=== PATIENT | male | born 1990 | race African-American/Black ===

== ENCOUNTER 2016-06-25 12:29 | Emergency (ER) | payer OTHER ==
[2016-06-25] MEDS ORDERED: Lidocaine 4% Cream 5 GM TUBE w/ Tegaderm ONE (12:42)
== END 2016-06-25 13:14 | disposition home or self-care (01) ==
LOC: BURERS 12:29
DX: L72.3 Sebaceous cyst (principal); F32.9 Major depressive disorder, single episode, unspecified; F17.210 Nicotine dependence, cigarettes, uncomplicated
CPT/HCPCS: 10060

== ENCOUNTER 2016-07-06 14:27 | Emergency (ER) | payer OTHER | END 2016-07-06 14:46 | disposition home or self-care (01) | LOC: BURERS 14:27 | DX: M25.561 Pain in right knee (principal); M25.562 Pain in left knee; F31.9 Bipolar disorder, unspecified; F17.210 Nicotine dependence, cigarettes, uncomplicated; Z79.899 Other long term (current) drug therapy | CPT/HCPCS: 99283 ==

== ENCOUNTER 2016-08-05 18:32 | Emergency (ER) | payer OTHER ==
[2016-08-05] MEDS ORDERED: HYDROcodone/Acetaminophen 10/325 mg Tablet ONE (18:52)
== END 2016-08-05 18:59 | disposition home or self-care (01) ==
LOC: BURERS 18:32
DX: L73.2 Hidradenitis suppurativa (principal); F31.9 Bipolar disorder, unspecified; F17.210 Nicotine dependence, cigarettes, uncomplicated
CPT/HCPCS: 99282

== ENCOUNTER 2016-08-12 14:11 | Emergency (ER) | payer OTHER ==
[2016-08-12] MEDS ORDERED: HYDROcodone/Acetaminophen 10/325 mg Tablet ONE (14:31)
[2016-08-12] MEDS ORDERED: Ibuprofen 800 MG TAB ONE (14:32)
[2016-08-12] MEDS ORDERED: Lidocaine 1% w/Epinephrine 1:100K 30 ML VIAL ONE (14:41)
== END 2016-08-12 15:45 | disposition home or self-care (01) ==
LOC: BURERS 14:11
DX: L02.212 Cutaneous abscess of back [any part, except buttock and flank] (principal); L73.2 Hidradenitis suppurativa; F17.210 Nicotine dependence, cigarettes, uncomplicated
CPT/HCPCS: 10060; J2001

== ENCOUNTER 2016-10-22 14:05 | Emergency (ER) | payer OTHER ==
[2016-10-22] MEDS ORDERED: HYDROcodone/Acetaminophen 10/325 mg Tablet ONE (14:17)
== END 2016-10-22 15:15 | disposition home or self-care (01) ==
LOC: BURERS 14:05
DX: L02.11 Cutaneous abscess of neck (principal); F17.210 Nicotine dependence, cigarettes, uncomplicated; F31.9 Bipolar disorder, unspecified
CPT/HCPCS: 10060

== ENCOUNTER 2017-01-10 14:34 | Emergency (ER) | payer OTHER ==
[2017-01-10] MEDS ORDERED: Sulfameth/Trimethoprim DS 800-160mg TAB ONE (16:37)
[2017-01-10] MEDS ORDERED: HYDROcodone/Acetaminophen 5/325 mg Tablet ONE (16:41)
== END 2017-01-10 16:43 | disposition home or self-care (01) ==
LOC: BURERS 14:34
DX: L02.11 Cutaneous abscess of neck (principal); F17.210 Nicotine dependence, cigarettes, uncomplicated
CPT/HCPCS: 10060; 87070; 87205

== ENCOUNTER 2017-02-07 11:54 | Emergency (ER) | payer OTHER ==
[2017-02-07] MEDS ORDERED: Lidocaine 1% w/Epinephrine 1:100K 30 ML VIAL ONE (12:03)
[2017-02-07] MEDS ORDERED: HYDROcodone/Acetaminophen 5/325 mg Tablet ONE (12:28)
== END 2017-02-07 12:32 | disposition home or self-care (01) ==
LOC: BURERS 11:54
DX: L02.11 Cutaneous abscess of neck (principal); L73.2 Hidradenitis suppurativa; F31.9 Bipolar disorder, unspecified; F41.9 Anxiety disorder, unspecified; F17.210 Nicotine dependence, cigarettes, uncomplicated; F17.290 Nicotine dependence, other tobacco product, uncomplicated
CPT/HCPCS: 10060; 87070; 87205; J2001

== ENCOUNTER 2017-03-17 15:56 | Emergency (ER) | payer OTHER ==
[2017-03-17] MEDS ORDERED: HYDROcodone/Acetaminophen 10/325 mg Tablet ONE (16:09)
[2017-03-17] MEDS ORDERED: Clindamycin 150 MG CAP ONE (16:09)
== END 2017-03-17 16:38 | disposition home or self-care (01) ==
LOC: BURERS 15:56
DX: L02.211 Cutaneous abscess of abdominal wall (principal); L02.416 Cutaneous abscess of left lower limb; L73.2 Hidradenitis suppurativa; F31.9 Bipolar disorder, unspecified; F41.9 Anxiety disorder, unspecified; F17.210 Nicotine dependence, cigarettes, uncomplicated
CPT/HCPCS: 10061

== ENCOUNTER 2017-03-26 11:13 | Emergency (ER) | payer OTHER ==
[2017-03-26] MEDS ORDERED: Ibuprofen 200 MG TAB ONE (11:38)
[2017-03-26] MEDS ORDERED: HYDROcodone/Acetaminophen 10/325 mg Tablet ONE (11:38)
== END 2017-03-26 12:05 | disposition home or self-care (01) ==
LOC: BURERS 11:13
DX: L73.2 Hidradenitis suppurativa (principal); L02.211 Cutaneous abscess of abdominal wall; F31.9 Bipolar disorder, unspecified; F41.9 Anxiety disorder, unspecified; F17.210 Nicotine dependence, cigarettes, uncomplicated
CPT/HCPCS: 10060

== ENCOUNTER 2017-04-16 12:13 | Emergency (ER) | payer OTHER ==
[2017-04-16] MEDS ORDERED: Ketorolac Tromethamine 60 MG/2 ML VIAL ONE (12:55)
[2017-04-16] MEDS ORDERED: Dexamethasone 4 mg/ml Vial ONE (12:57)
--- NOTE | 2017-04-16 17:51 | RAD ---
CHEST TWO VIEWS 04/16/17 Comparison is made with a 07/29/15 study. The heat is normal in size and the lungs are clear. No infiltrate or effusion was seen. The trachea i s midline. The bony structures appear normal. The mediastinum appears normal. IMPRESSION: No acute thoracic findings. POS: HOME
== END 2017-04-16 13:20 | disposition home or self-care (01) ==
LOC: BURERS 12:13
DX: J11.1 Influenza due to unidentified influenza virus with other respiratory manifestations (principal); F41.9 Anxiety disorder, unspecified; F31.9 Bipolar disorder, unspecified; F17.210 Nicotine dependence, cigarettes, uncomplicated
CPT/HCPCS: 71046; 96372; J1100; J1885

== ENCOUNTER 2017-08-08 09:04 | Emergency (ER) | payer OTHER ==
[2017-08-08] MEDS ORDERED: Morphine 10 MG/ML VIAL ONE (09:44)
== END 2017-08-08 10:15 | disposition home or self-care (01) ==
LOC: BURERS 09:04
DX: L02.11 Cutaneous abscess of neck (principal); F31.9 Bipolar disorder, unspecified; F41.9 Anxiety disorder, unspecified; F17.210 Nicotine dependence, cigarettes, uncomplicated
CPT/HCPCS: 10061; 96372; J2270

== ENCOUNTER 2017-08-27 20:37 | Emergency (ER) | payer OTHER ==
[2017-08-27] MEDS ORDERED: Ondansetron HCl/PF 4 MG/2 ML Vial ONE (21:17)
[2017-08-27] MEDS ORDERED: Ketorolac Tromethamine 30 MG/ML VIAL ONE (21:17)
[2017-08-27] MEDS ORDERED: Piperacillin/Tazobactam 3.375 GM VIAL ONE (21:17)
[2017-08-27 21:50] LABS: ALT (SGPT) 21 U/L (8-55); AST (SGOT) 21 U/L (5-34); Alkaline Phosphatase 188 U/L (40-150); Anion Gap 15 mmol/L (10-20); BUN (Urea Nitrogen) 6 mg/dL (8.9-20.6); Bilirubin, Total 0.3 mg/dL (0.2-1.2); Calc. Creatinine Clearance 0 mL/min (70-130); Calcium 9.2 mg/dL (7.8-10.44); Carbon Dioxide 24 mmol/L (22-29); Chloride 102 mmol/L (98-107); Estimated GFR-MDRD Greater than 90; Globulin 7.4 g/dL (2.4-3.5); Glucose 106 mg/dL (70-105); Potassium 3.3 mmol/L (3.5-5.1); Protein, Total 10.4 g/dL (6.0-8.3); Sodium 138 mmol/L (136-145)
[2017-08-27 21:57] LABS: Anisocytosis SLIGHT = 6-15 cells (100X) (0-5/hpf); Band 8 % (5-11); Hemoglobin 12.5 g/dL (14.0-18.0); Lymphocytes 10 % (21-51); MDiff Complete? YES; Mean Corpuscular HGB CONC 34.4 g/dL (32.0-36.0); Mean Corpuscular Hemoglobin 25.2 pg (27.0-31.0); Mean Corpuscular Volume 73.3 fL (78.0-98.0); Mean Platelet Volume 4.9 fL (7.4-10.4); Microcytosis SLIGHT = 6-15 cells (100X) (0-5/hpf); Monocytes 4 % (0-10); Neutrophil 78 % (42-75); PLT Morphology Comment Appears Increased; Platelet Count 402 thou/uL (130-400); RBC Distribution Width 14.9 % (11.5-14.5); Red Blood Cell (RBC) Count 4.95 mill/uL (4.70-6.10); Small Platelets SLIGHT; Toxic Granulation SLIGHT; White Blood Cell (WBC) Count 26.3 thou/uL (4.8-10.8)
[2017-08-27 23:08] LABS: Bilirubin Negative (Negative); Blood, Urine Negative (Negative); Clarity Clear (Clear); Glucose, Urine (Dipstick) Negative (Negative); Leukocyte Negative (Negative); Nitrite Negative (Negative); Protein, Urine (Dipstick) Negative (Neg-Trace); Specific Gravity, Urine 1.007 (1.002-1.036); Urobilinogen 0.2 mg/dL (0.2-1.0); pH, Urine 6.5 (5.0-9.0)
== END 2017-08-27 23:55 | disposition short-term general hospital (02) ==
LOC: BURERS 20:37
DX: A41.9 Sepsis, unspecified organism (principal); L73.2 Hidradenitis suppurativa; L02.215 Cutaneous abscess of perineum; L02.416 Cutaneous abscess of left lower limb; L02.415 Cutaneous abscess of right lower limb; L02.414 Cutaneous abscess of left upper limb; L02.413 Cutaneous abscess of right upper limb; L02.412 Cutaneous abscess of left axilla; L02.411 Cutaneous abscess of right axilla; L02.211 Cutaneous abscess of abdominal wall; L02.31 Cutaneous abscess of buttock; L02.212 Cutaneous abscess of back [any part, except buttock and flank]; L02.213 Cutaneous abscess of chest wall; F31.9 Bipolar disorder, unspecified; F41.9 Anxiety disorder, unspecified; F17.210 Nicotine dependence, cigarettes, uncomplicated; Z79.899 Other long term (current) drug therapy
CPT/HCPCS: 80053; 81003; 83605; 85025; 87040; 87070; 87086; 87205; 96365; 96366; 96375; 96376; J1885; J2270; J2405; J2543; J3370

== ENCOUNTER 2017-11-09 12:05 | Emergency (ER) | payer OTHER ==
--- NOTE | 2017-11-09 21:40 | RAD ---
CHEST TWO VIEWS: 11/09/17 Comparison is made with a 04/16/17 study. There has been no adverse interval change. The heart is normal in size and the lungs are clear. No ef fusions are seen. IMPRESSION: No acute thoracic finding. POS: HOME
== END 2017-11-09 12:38 | disposition home or self-care (01) ==
LOC: BURERS 12:05
DX: J06.9 Acute upper respiratory infection, unspecified (principal); F31.9 Bipolar disorder, unspecified; F41.9 Anxiety disorder, unspecified; Z87.891 Personal history of nicotine dependence
CPT/HCPCS: 71046

== ENCOUNTER 2017-11-26 11:18 | Emergency (ER) | payer OTHER ==
[2017-11-26] MEDS ORDERED: HYDROcodone/Acetaminophen 10/325 mg Tablet ONE (12:07)
[2017-11-26] MEDS ORDERED: Sulfameth/Trimethoprim DS 800-160mg TAB ONE (12:08)
== END 2017-11-26 12:13 | disposition home or self-care (01) ==
LOC: BURERS 11:18
DX: L02.212 Cutaneous abscess of back [any part, except buttock and flank] (principal); L02.213 Cutaneous abscess of chest wall; F41.9 Anxiety disorder, unspecified; F31.9 Bipolar disorder, unspecified; Z87.891 Personal history of nicotine dependence; Z79.899 Other long term (current) drug therapy
CPT/HCPCS: 10061; 87070; 87077; 87186; 87205

== ENCOUNTER 2018-01-19 08:33 | Observation (INO) | payer OTHER ==
[2018-01-19] MEDS ORDERED: Iopamidol 370 76% 125 ML VIAL FS ONE (09:00)
[2018-01-19] MEDS ORDERED: Fentanyl 100 MCG/2 ML VIAL ONE (09:22)
[2018-01-19] MEDS ORDERED: Ondansetron PF 4 MG/2 ML Vial ONE (09:23)
[2018-01-19 09:27] LABS: Hemoglobin 15.2 g/dL (14.0-18.0); Mean Corpuscular HGB CONC 32.4 g/dL (32.0-36.0); Mean Corpuscular Hemoglobin 23.9 pg (27.0-31.0); Mean Corpuscular Volume 73.6 fL (78.0-98.0); Mean Platelet Volume 5.5 fL (7.4-10.4); Platelet Count 438 thou/uL (130-400); RBC Distribution Width 16.4 % (11.5-14.5); Red Blood Cell (RBC) Count 6.36 mill/uL (4.70-6.10); White Blood Cell (WBC) Count 20.4 thou/uL (4.8-10.8)
[2018-01-19 09:42] LABS: ALT (SGPT) 17 U/L (8-55); AST (SGOT) 17 U/L (5-34); Albumin 3.6 g/dL (3.5-5.0); Alkaline Phosphatase 130 U/L (40-150); Anion Gap 17 mmol/L (10-20); BUN (Urea Nitrogen) 11 mg/dL (8.9-20.6); Bilirubin, Total 0.4 mg/dL (0.2-1.2); Calc. Creatinine Clearance 0 mL/min (70-130); Calcium 9.7 mg/dL (7.8-10.44); Carbon Dioxide 22 mmol/L (22-29); Chloride 105 mmol/L (98-107); Estimated GFR-MDRD Greater than 90; Globulin 5.3 g/dL (2.4-3.5); Glucose 127 mg/dL (70-105); Lipase 26 U/L (8-78); Potassium 3.5 mmol/L (3.5-5.1); Protein, Total 8.9 g/dL (6.0-8.3); Sodium 140 mmol/L (136-145)
[2018-01-19 09:46] LABS: Anisocytosis SLIGHT = 6-15 cells (100X) (0-5/hpf); Band 2 % (5-11); Lymphocytes 7 % (21-51); MDiff Complete? YES; Microcytosis SLIGHT = 6-15 cells (100X) (0-5/hpf); Monocytes 3 % (0-10); Neutrophil 88 % (42-75); PLT Morphology Comment Appears Increased
--- NOTE | 2018-01-19 10:41 | RAD ---
PORTABLE CHEST: Date: 01-19-18 An AP portable film at 0939 is compared with a 11-09-17 study. FINDINGS: The heart is normal in size and the lungs are clear. No infiltrate, effusion, or congestion was seen. The trachea is midline. IMPRESSION: No acute thoracic finding. POS: HOME
--- NOTE | 2018-01-19 10:52 | CT ---
CT ABDOMEN AND PELVIS WITH CONTRAST: Date: 01-19-[address] of the abdomen and pelvis was done for evaluation of epigastric pain and decreased bowel so unds. Axial slices were acquired then coronal and sagittal reconstructions were done. FINDINGS: The lung bases are clear. The liver, spleen, pancreas, gallbladder, adrenal glands, kidneys, and abdo niki aorta appear normal. The main finding on this study is multiple fluid filled loops of small and large bowel. Loops are sarahi led with an abundance of fluid from the gastric region down through the sigmoid. No loops are signifi cantly dilated. There is not significant amounts of wall thickening. No free fluid or free air is see n. The appendix is identified and appears normal. CT of the pelvis was remarkable only for the fluid filled loops of bowel. No free fluid or inflammato ry changes were seen here. No bony abnormalities were appreciated in the lumbar spine or pelvis. IMPRESSION: Multiple fluid filled loops of large and small bowel. Enteritis should be considered. Findings discussed with Dr. Marie at 1025 on 01-19-18. POS: HOME
[2018-01-19] MEDS ORDERED: Sodium Chloride 0.9% 10 ML ONE (12:18)
[2018-01-19] MEDS: Sodium Chloride 0.9% 1,000 ML IV SCH (12:30)
[2018-01-19] MEDS ORDERED: Ondansetron PF 4 MG/2 ML Vial IVP PRN (14:56)
[2018-01-19] MEDS ORDERED: Ondansetron ODT 4 MG TAB SL PRN (14:56)
[2018-01-19] MEDS ORDERED: Acetaminophen 325 MG TAB PO PRN (14:56)
[2018-01-19 15:15] LABS: Clarity Clear (Clear); Specific Gravity, Urine 1.006 (1.005-1.030); pH, Urine 5.5 (5.0-9.0)
[2018-01-19 15:16] LABS: Bilirubin Negative (Negative); Blood, Urine Negative (Negative); Glucose, Urine (Dipstick) Negative (Negative); Leukocyte Negative (Negative); Nitrite Negative (Negative); Protein, Urine (Dipstick) Negative (Neg-Trace); Urobilinogen 0.2 mg/dL (0.2-1.0)
[2018-01-19 15:21] LABS: Amphetamine Not Detected (NotDetected); Barbiturates Screen Not Detected (NotDetected); Benzodiazepine Screen Not Detected (NotDetected); Cocaine Metabolite Screen Not Detected (NotDetected); Medtox Control Line Valid? VALID (VALID); Methadone Not Detected (NotDetected); Methamphetamine Not Detected (NotDetected); Opiate Screen Not Detected (NotDetected); Oxycodone Screen Not Detected (NotDetected); Phencyclidine (PCP) Not Detected (NotDetected); THC/Cannabinoid Screen Detected (NotDetected); Tricyclic Screen Not Detected (NotDetected)
[2018-01-19 16:49] VITALS: BMI 21.7
[2018-01-19] MEDS: Dicyclomine 20 MG TAB PO SCH (22:07)
[2018-01-19] MEDS: Famotidine 20 MG TAB PO SCH (22:07)
[2018-01-20] MEDS: Sodium Chloride 0.9% 1,000 ML IV SCH (00:40)
--- NOTE | 2018-01-20 01:47 | HP ---
OBS ADMISSION AND DISCHARGE CHIEF COMPLAINT: Nausea, vomiting, diarrhea, abdominal pain. HISTORY OF PRESENT ILLNESS: 27-year-old male presented to [facility] Emergency Department earlier today with complaints of intractable nausea, vomiting, diarrhea, and abdominal pain that began abruptly earlier this morning around 2:30. He reports having accompanied subjective warmth. The patient states that he had chicken for dinner the night prior; however, no other individuals have similar symptoms as himself. He has been unable to hold down any food or liquids since his symptoms began. He denies having had any melena or hematochezia. He had not taken any medications for these symptoms prior to his arrival at the emergency department. In the ER, labs were obtained revealing leukocytosis with a left shift; however, it is noted that this patient has underlying hidradenitis with chronic draining skin ulcers and in looking back at prior CBCs, the patient has chronic leukocytosis dating back to 2011. His lactic acid was elevated at 3.2 and thus, he has been started on intravenous fluids in regards to this and his presenting symptoms. Electrolytes were within normal limits as was his lipase and liver enzymes. Urinalysis was notably clear. A CT scan of the abdomen and pelvis was obtained secondary to the patient's complaints of pain and this revealed multiple fluid-filled loops of the large and small bowel consistent with enteritis. Working diagnosis is that this is most likely viral in nature. Due to the patient's inability to tolerate any p.o. and ongoing pain with need for followup labs and obtained stool cultures, he will be admitted for observation status. PAST MEDICAL HISTORY: Includes hidradenitis and bipolar disorder. PAST SURGICAL HISTORY: He has had multiple I and Ds of his abscesses. SOCIAL HISTORY: Denies smoking or ETOH use. His urine toxicology does show to be positive for cannabinoids. ALLERGIES: NO KNOWN DRUG ALLERGIES. FAMILY HISTORY: Noncontributory. CURRENT MEDICATIONS: Include Abilify 10 mg p.o. daily. REVIEW OF SYSTEMS: GENERAL: The patient complains of subjective warmth. EAR, NOSE, AND THROAT: Denies sore throat, nasal drainage, or congestion. CARDIOVASCULAR: Denies chest pain or palpitations. RESPIRATORY: Denies shortness of breath or cough. GASTROINTESTINAL: Complains of nausea, vomiting, diarrhea, and abdominal pain. GENITOURINARY: Denies dysuria. MUSCULOSKELETAL: Denies joint swelling. DERMATOLOGY: Complains of chronic skin abscesses. NEUROLOGIC: Denies headache. IMAGING DATA: 01/19/2018, chest x-ray shows no acute thoracic finding. 2017, CT of the abdomen and pelvis shows multiple fluid-filled loops of large and small bowel. Enteritis should be considered. LABORATORY DATA: White blood cell count is 20.4, H and H are 15.2 and 46.8, platelets 438. Sodium is 140, potassium is 3.5, BUN is 11, creatinine 0.85, GFR greater than 90, glucose 127, lactic acid 3.2. AST and ALT are both 17, lipase 26. Urinalysis is clear. Toxicology is positive for cannabinoids. PHYSICAL EXAMINATION: VITAL SIGNS: Temperature is 99.1, pulse is 77, respiratory rate is 18, oxygen is 97% on room air, blood pressure is 107/59. GENERAL: The patient is alert and oriented. He is uncomfortable. HEENT: Face, no asymmetry. He has acne scarring noted to the face. Eyes, conjunctivae are clear. Extraocular muscles are intact bilaterally. No discharge. Head, eyes, ears, nose, and throat are within normal limits. Oral cavity shows moist mucous membranes. NECK: Supple with no lymphadenopathy. No meningeal signs. CARDIOVASCULAR: Regular rate and rhythm. Normal S1 and S2, with no murmurs, rubs, or gallops. RESPIRATORY: Clear to auscultation bilaterally without wheezes, rales, or rhonchi. GASTROINTESTINAL: Mildly tender to palpation diffusely. No guarding. No rebound. No masses. EXTREMITIES: No clubbing, cyanosis, or edema. SKIN: Some small pustules to the skin intermixed with larger pustules as well as scars noted throughout the skin. NEUROLOGIC: Nonfocal. ASSESSMENT AND PLAN: 1. Gastroenteritis, suspected viral at this point. There are stool cultures pending. We will follow up his CBC and lactic acid along with a metabolic panel in the morning. He is being provided intravenous fluids and we will start on a clear liquid diet to advance as tolerated. The patient will have Zofran for the nausea and vomiting, Florastor has been added as a probiotic for the diarrhea, and Bentyl has been added as an antispasmodic for the GI tract. 2. Abdominal pain, improved since initially seen in the ER. We will resume the above specified medications. 3. Hydradenitis, chronic issue, which is likely contributed to his chronic leukocytosis. 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 4. Bipolar disorder. We will resume the patient's home Abilify. 5. Prophylaxis. We will provide SCDs for deep venous thrombosis prophylaxis. We will start the patient on famotidine for gastrointestinal prophylaxis. CODE STATUS: Full. DISCHARGE SUMMARY: Pt did well overnight with no further emesis or diarrhea; pain improved; repeat labs revealed CBC to be at patient's baseline. CMP WNL other than mild hypokalemia at 3.3 for which he was provided 40 mEq supplemental potassium. Pt's diet was advanced and tolerated. Review of stool studies showed to be negative for Campylobacter, E coli and C diff. He has remained afebrile. He feels improved and due to this with his ability to tolerate po now, he will be discharged home with prn Zofran and further probiotics. He has been advised to advance his diet slowly as tolerated and remain well hydrated; gatorade encouraged to continue repletion of electrolytes. He may f/u with myself in the clinic next week. Pt amenable for d/ c at this time. Job ID: [id number] MTDD
[2018-01-20 05:43] LABS: Lactic Acid 0.9 mmol/L (0.5-2.2)
[2018-01-20 05:50] LABS: ALT (SGPT) 10 U/L (8-55); AST (SGOT) 11 U/L (5-34); Albumin 2.8 g/dL (3.5-5.0); Alkaline Phosphatase 91 U/L (40-150); Anion Gap 11 mmol/L (10-20); BUN (Urea Nitrogen) 6 mg/dL (8.9-20.6); Bilirubin, Total 0.5 mg/dL (0.2-1.2); Calc. Creatinine Clearance 143 mL/min (70-130); Calcium 8.3 mg/dL (7.8-10.44); Carbon Dioxide 23 mmol/L (22-29); Chloride 106 mmol/L (98-107); Estimated GFR-MDRD Greater than 90; Globulin 3.9 g/dL (2.4-3.5); Glucose 88 mg/dL (70-105); Potassium 3.3 mmol/L (3.5-5.1); Protein, Total 6.7 g/dL (6.0-8.3); Sodium 137 mmol/L (136-145)
[2018-01-20 07:03] LABS: #Basophils 0.1 thou/uL (0.0-0.2); #Eosinphils 0.1 thou/uL (0.0-0.7); #Lymphocytes 2.8 thou/uL (1.20-3.40); #Monocytes 0.7 thou/uL (0.11-0.59); #Neutrophils 12.6 thou/uL (1.40-6.50); %Basophils 0.7 % (0.0-1.0); %Eosinophils 0.7 % (0.0-10.0); %Lymphocytes 17.3 % (21.0-51.0); %Monocytes 4.4 % (0.0-10.0); %Neutrophils 76.9 % (42.0-75.0); Anisocytosis SLIGHT = 6-15 cells (100X) (0-5/hpf); Hemoglobin 13.2 g/dL (14.0-18.0); MDiff Complete? YES; Mean Corpuscular HGB CONC 32.7 g/dL (32.0-36.0); Mean Corpuscular Hemoglobin 24.3 pg (27.0-31.0); Mean Corpuscular Volume 74.3 fL (78.0-98.0); Mean Platelet Volume 5.4 fL (7.4-10.4); PLT Morphology Comment Appears Adequate; Platelet Count 314 thou/uL (130-400); RBC Distribution Width 16.7 % (11.5-14.5); Red Blood Cell (RBC) Count 5.43 mill/uL (4.70-6.10); White Blood Cell (WBC) Count 16.4 thou/uL (4.8-10.8)
[2018-01-20] MEDS ORDERED: Potassium Chloride 20 MEQ TAB PO SCH (07:45)
[2018-01-20] MEDS: Dicyclomine 20 MG TAB PO SCH ×2 (08:37→13:43)
[2018-01-20] MEDS: Famotidine 20 MG TAB PO SCH (08:38)
[2018-01-20] MEDS ORDERED: Saccharomyces boulardii 250 MG CAP PO SCH (09:00)
[2018-01-20] MEDS ORDERED: Aripiprazole 10 MG TAB PO SCH (09:00)
[2018-01-20] MEDS ORDERED: Acetaminophen/Codeine 30-300mg Tablet PO SCH (09:00)
[2018-01-20] MEDS ORDERED: Acetaminophen/Codeine 30-300mg Tablet PO PRN (14:45)
[2018-01-20 19:05] VITALS: BP 117/66; TEMP 98.7
== END 2018-01-20 18:00 | disposition home or self-care (01) ==
LOC: BURERS 08:33 → BURMED 11:17
PROVIDERS: ADMIT Family Medicine; ATTEND Family Medicine
DX: K52.9 Noninfective gastroenteritis and colitis, unspecified (principal); F31.9 Bipolar disorder, unspecified; L73.2 Hidradenitis suppurativa; D72.829 Elevated white blood cell count, unspecified; E87.6 Hypokalemia; Z79.899 Other long term (current) drug therapy; Z98.890 Other specified postprocedural states
CPT/HCPCS: 36415; 71045; 74177; 80053; 80306; 81003; 82274; 83605; 83630; 83690; 85025; 87045; 87046; 87070; 87086; 87205; 87324; 87449; 87798; 87899; 93005; 94760; 96361; 96374; 96375; G0378; J2405; J3010

== ENCOUNTER 2018-02-25 11:51 | Emergency (ER) | payer OTHER ==
[2018-02-25] MEDS ORDERED: Morphine 10 MG/ML VIAL ONE (12:07)
== END 2018-02-25 12:54 | disposition home or self-care (01) ==
LOC: BURERS 11:51
DX: L02.212 Cutaneous abscess of back [any part, except buttock and flank] (principal); L73.2 Hidradenitis suppurativa; Z87.891 Personal history of nicotine dependence
CPT/HCPCS: 10060; 96372; J2270

== ENCOUNTER 2018-04-13 18:58 | Emergency (ER) | payer OTHER ==
[2018-04-13] MEDS ORDERED: Piperacillin/Tazobactam 4.5 GM VIAL ONE (20:46)
[2018-04-13] MEDS ORDERED: Acetaminophen 500 MG TAB ONE (20:46)
[2018-04-13] MEDS ORDERED: Ketorolac Tromethamine 30 MG/ML VIAL ONE (20:46)
[2018-04-13] MEDS ORDERED: Fentanyl 100 MCG/2 ML VIAL ONE (20:46)
[2018-04-13] MEDS ORDERED: Acetaminophen 325 MG TAB ONE (20:48)
[2018-04-13 21:15] LABS: ALT (SGPT) 9 U/L (8-55); AST (SGOT) 12 U/L (5-34); Albumin 3.6 g/dL (3.5-5.0); Alkaline Phosphatase 99 U/L (40-150); Anion Gap 14 mmol/L (10-20); BUN (Urea Nitrogen) 5 mg/dL (8.9-20.6); Bilirubin, Total 0.3 mg/dL (0.2-1.2); Calc. Creatinine Clearance 0 mL/min (70-130); Calcium 9.6 mg/dL (7.8-10.44); Carbon Dioxide 26 mmol/L (22-29); Chloride 101 mmol/L (98-107); Estimated GFR-MDRD Greater than 90; Globulin 5.6 g/dL (2.4-3.5); Glucose 94 mg/dL (70-105); Potassium 3.9 mmol/L (3.5-5.1); Protein, Total 9.2 g/dL (6.0-8.3); Sodium 137 mmol/L (136-145)
[2018-04-13 21:23] LABS: Anisocytosis SLIGHT = 6-15 cells (100X) (0-5/hpf); Band 4 % (5-11); Hemoglobin 14.8 g/dL (14.0-18.0); Lymphocytes 16 % (21-51); MDiff Complete? YES; Mean Corpuscular HGB CONC 32.9 g/dL (32.0-36.0); Mean Corpuscular Hemoglobin 26.3 pg (27.0-31.0); Mean Corpuscular Volume 79.9 fL (78.0-98.0); Mean Platelet Volume 5.5 fL (7.4-10.4); Monocytes 7 % (0-10); Neutrophil 73 % (42-75); Platelet Count 354 thou/uL (130-400); Platelet Morphology Comment Appears Adequate; RBC Distribution Width 15.7 % (11.5-14.5); Red Blood Cell (RBC) Count 5.62 mill/uL (4.70-6.10); Small Platelets SLIGHT; Toxic Granulation SLIGHT; White Blood Cell (WBC) Count 24.9 thou/uL (4.8-10.8)
[2018-04-13] MEDS ORDERED: Adacel (T-DAP) 0.5 ML SYRINGE ONE (22:08)
--- NOTE | 2018-04-14 07:49 | RAD ---
PORTABLE CHEST: Date: 04/13/18 An AP portable film at 2018 hours is compared to the 01/19/18 study. FINDINGS: The heart is normal in size and the lungs are clear. No infiltrate or effusion seen. There is no vasc ular congestion or edema. The mediastinum appears normal. IMPRESSION: No acute thoracic findings. POS: HOME
== END 2018-04-13 22:48 | disposition short-term general hospital (02) ==
LOC: BURERS 18:58
DX: A41.9 Sepsis, unspecified organism (principal); L02.412 Cutaneous abscess of left axilla; L73.2 Hidradenitis suppurativa; F31.9 Bipolar disorder, unspecified; F17.210 Nicotine dependence, cigarettes, uncomplicated
CPT/HCPCS: 10061; 71045; 80053; 83605; 85025; 87040; 87070; 87205; 90471; 90715; 94760; 96365; 96366; 96368; 96375; J1885; J2543; J3010; J3370

== ENCOUNTER 2018-05-25 19:08 | Emergency (ER) | payer OTHER ==
[2018-05-25 19:42] LABS: #Basophils 0.1 thou/uL (0.0-0.2); #Lymphocytes 4.6 thou/uL (1.20-3.40); #Monocytes 1.2 thou/uL (0.11-0.59); %Basophils 0.5 % (0.0-1.0); %Eosinophils 0.2 % (0.0-10.0); %Lymphocytes 17.6 % (21.0-51.0); %Monocytes 4.6 % (0.0-10.0); %Neutrophils 77.2 % (42.0-75.0); Hemoglobin 14.1 g/dL (14.0-18.0); Mean Corpuscular HGB CONC 31.1 g/dL (32.0-36.0); Mean Corpuscular Hemoglobin 25.4 pg (27.0-31.0); Mean Corpuscular Volume 81.8 fL (78.0-98.0); Mean Platelet Volume 5.4 fL (7.4-10.4); Platelet Count 467 thou/uL (130-400); RBC Distribution Width 15.5 % (11.5-14.5); Red Blood Cell (RBC) Count 5.55 mill/uL (4.70-6.10); White Blood Cell (WBC) Count 25.9 thou/uL (4.8-10.8)
[2018-05-25] MEDS ORDERED: Ketorolac Tromethamine 30 MG/ML VIAL ONE (19:49)
[2018-05-25 19:58] LABS: ALT (SGPT) 19 U/L (8-55); AST (SGOT) 18 U/L (5-34); Albumin 3.8 g/dL (3.5-5.0); Alkaline Phosphatase 120 U/L (40-150); Anion Gap 19 mmol/L (10-20); BUN (Urea Nitrogen) 12 mg/dL (8.9-20.6); Bilirubin, Total Less than 0.2 mg/dL (0.2-1.2); Calc. Creatinine Clearance 0 mL/min (70-130); Carbon Dioxide 23 mmol/L (22-29); Chloride 102 mmol/L (98-107); Estimated GFR-MDRD Greater than 90; Globulin 6.2 g/dL (2.4-3.5); Glucose 93 mg/dL (70-105); Potassium 3.1 mmol/L (3.5-5.1); Sodium 141 mmol/L (136-145)
[2018-05-25] MEDS ORDERED: Piperacillin/Tazobactam 4.5 GM VIAL ONE (20:12)
[2018-05-25] MEDS ORDERED: Fentanyl 100 MCG/2 ML VIAL ONE (20:39)
[2018-05-25] MEDS ORDERED: Ondansetron PF 4 MG/2 ML Vial ONE (20:39)
--- NOTE | 2018-05-25 21:39 | RAD ---
PORTABLE CHEST 05/25/18 An AP portable film at 1937 is compared with a 04/13/18 study. The heart is normal in size and the lungs are clear. No acute infiltrate or effusion was seen. There is no congestion of the vessel. The mediastinum appears normal. IMPRESSION: No acute thoracic findings. POS: HOME
--- NOTE | 2018-05-25 21:58 | CT ---
CT ANGIO OF THE CHEST WITH CONTRAST 05/25/[address] of the chest was performed after a bolus of IV contrast for evaluation of severe chest pain and a greatly elevated D-dimer. The patient's white count is elevated as well as other indicators. I understand that he suffers from hidradenitis suppurativa. Axial slices were acquired followed by mina ious reconstructions through the pulmonary arteries with MIP images. There are some unusual shadows crossing through particularly the right pulmonary artery fairly proxim ally. These mostly appear like artifact and their edges seem a bit too soft to be a typical pulmonary embolism. On some of the reconstructed images, they look a little more worrisome, but in my mind rem ain indeterminate. There are a few similar findings in some of the proximal left pulmonary artery br anches, but they are seen less well. There is undoubtedly at least some of this due to artifact also. I do not see any pulmonary infiltrates of concern. No cavitary lesions or mass lesions are seen such as might be seen with septic emboli of the lungs. There are no effusions. The mediastinum showed no s ign of mass or adenopathy. There might be a slight increase in nodes in the axillary regions, right m ore than left. Scans into the upper abdomen suggests the liver is perhaps a little generous in size but not dramatic ally so. The adrenal glands were unremarkable. The visible portions of the pancreas and spleen were u nremarkable. IMPRESSION: Equivocal findings of the pulmonary arteries, particularly the right pulmonary artery proximally. The shadows seen appear mostly like artifact. The edges of the findings in the arteries seem a bit too s oft and unsharp to be typical of thrombus. Nevertheless, the reconstructed images are a bit more conc erning, and the patient's clinical presentation and labs certainly are very concerning as well. At t his point, I do not feel like I can definitively rule out pulmonary embolism. I have consulted with o ne of the other radiologists who was in agreement. I would suggest considering scanning the patient's legs for DVT and ensuring there is no clot there t hat might prompt treatment. Ultimately, he might need a repeat CT angio of the chest, perhaps on a di fferent machine, to take another look at these pulmonary arteries. After gaining a second opinion, these findings and recommendations were shared with Dr. Moon at 9736 . Code CR POS: HOME
[2018-05-25] MEDS ORDERED: Enoxaparin Sodium 100 MG/ML SYRINGE ONE (22:24)
[2018-05-25] MEDS ORDERED: Aspirin Chewable 81 MG TAB ONE (22:24)
== END 2018-05-25 22:40 | disposition home or self-care (01) ==
LOC: BURERS 19:08
DX: A41.9 Sepsis, unspecified organism (principal); I26.99 Other pulmonary embolism without acute cor pulmonale; F31.9 Bipolar disorder, unspecified; F17.210 Nicotine dependence, cigarettes, uncomplicated
CPT/HCPCS: 71045; 71275; 80053; 83605; 84484; 85025; 85379; 85652; 87040; 96361; 96365; 96367; 96372; 96375; J1650; J1885; J2405; J2543; J3010; J3370

== ENCOUNTER 2018-06-16 11:37 | Emergency (ER) | payer OTHER ==
[2018-06-16] MEDS ORDERED: HYDROcodone/Acetaminophen 5/325 mg Tablet ONE (13:24)
== END 2018-06-16 13:27 | disposition home or self-care (01) ==
LOC: BURERS 11:37
DX: L02.212 Cutaneous abscess of back [any part, except buttock and flank] (principal); Z79.899 Other long term (current) drug therapy
CPT/HCPCS: 10061

== ENCOUNTER 2018-06-23 09:35 | Emergency (ER) | payer OTHER ==
[2018-06-23] MEDS ORDERED: predniSONE 20 MG TAB ONE (10:11)
[2018-06-23 10:34] LABS: ALT (SGPT) 14 U/L (8-55); AST (SGOT) 13 U/L (5-34); Albumin 3.4 g/dL (3.5-5.0); Alkaline Phosphatase 128 U/L (40-150); Anion Gap 15 mmol/L (10-20); BUN (Urea Nitrogen) 6 mg/dL (8.9-20.6); Bilirubin, Total 0.3 mg/dL (0.2-1.2); Calc. Creatinine Clearance 0 mL/min (70-130); Calcium 9.2 mg/dL (7.8-10.44); Carbon Dioxide 25 mmol/L (22-29); Chloride 101 mmol/L (98-107); Estimated GFR-MDRD Greater than 90; Glucose 98 mg/dL (70-105); Lipase 22 U/L (8-78); Potassium 3.5 mmol/L (3.5-5.1); Protein, Total 9.4 g/dL (6.0-8.3); Sodium 137 mmol/L (136-145)
[2018-06-23 10:39] LABS: Hemoglobin 13.6 g/dL (14.0-18.0); Mean Corpuscular HGB CONC 31.2 g/dL (32.0-36.0); Mean Corpuscular Hemoglobin 25.3 pg (27.0-31.0); Mean Corpuscular Volume 81.1 fL (78.0-98.0); Mean Platelet Volume 5.4 fL (7.4-10.4); Platelet Count 409 thou/uL (130-400); RBC Distribution Width 14.6 % (11.5-14.5); Red Blood Cell (RBC) Count 5.37 mill/uL (4.70-6.10); White Blood Cell (WBC) Count 23.3 thou/uL (4.8-10.8)
[2018-06-23 10:56] LABS: Lymphocytes 15 % (21-51); MDiff Complete? YES; Monocytes 7 % (0-10); Neutrophil 77 % (42-75); Platelet Morphology Comment Appears Increased; RBC Morphology Normal
--- NOTE | 2018-06-23 19:47 | RAD ---
PORTABLE CHEST: 06/23/18 An AP portable film at 1019 is compared with a 05/25/18 study. The heart is normal in size and the lungs are clear. No infiltrate or effusion was seen. The mediast inum appears normal and the trachea is midline. IMPRESSION: No acute thoracic finding. POS: HOME
== END 2018-06-23 10:57 | disposition home or self-care (01) ==
LOC: BURERS 09:35
DX: R07.89 Other chest pain (principal); F19.939 Other psychoactive substance use, unspecified with withdrawal, unspecified
CPT/HCPCS: 36415; 71045; 80053; 83690; 84484; 85025; 93005; J7512

== ENCOUNTER 2018-07-13 17:01 | Emergency (ER) | payer OTHER ==
[2018-07-13] MEDS ORDERED: Fentanyl 100 MCG/2 ML VIAL ONE (17:37)
[2018-07-13 18:00] LABS: #Basophils 0.1 thou/uL (0.0-0.2); #Eosinphils 0.1 thou/uL (0.0-0.7); #Lymphocytes 3.9 thou/uL (1.20-3.40); #Monocytes 0.8 thou/uL (0.11-0.59); #Neutrophils 22.3 thou/uL (1.40-6.50); %Basophils 0.4 % (0.0-1.0); %Eosinophils 0.4 % (0.0-10.0); %Lymphocytes 14.1 % (21.0-51.0); %Monocytes 3.1 % (0.0-10.0); Hemoglobin 12.2 g/dL (14.0-18.0); Mean Corpuscular HGB CONC 32.8 g/dL (32.0-36.0); Mean Corpuscular Volume 79.3 fL (78.0-98.0); Mean Platelet Volume 5.3 fL (7.4-10.4); Platelet Count 430 thou/uL (130-400); RBC Distribution Width 14.1 % (11.5-14.5); Red Blood Cell (RBC) Count 4.67 mill/uL (4.70-6.10); White Blood Cell (WBC) Count 27.2 thou/uL (4.8-10.8)
[2018-07-13] MEDS ORDERED: Sodium Chloride 0.9% 100 ML ONE (18:17)
[2018-07-13] MEDS ORDERED: Piperacillin/Tazobactam 4.5 GM VIAL ONE (18:17)
[2018-07-13 18:18] LABS: ALT (SGPT) 20 U/L (8-55); AST (SGOT) 34 U/L (5-34); Albumin 3.1 g/dL (3.5-5.0); Alkaline Phosphatase 170 U/L (40-150); Anion Gap 16 mmol/L (10-20); BUN (Urea Nitrogen) 6 mg/dL (8.9-20.6); Bilirubin, Total 0.4 mg/dL (0.2-1.2); Calc. Creatinine Clearance 0 mL/min (70-130); Calcium 9.2 mg/dL (7.8-10.44); Carbon Dioxide 23 mmol/L (22-29); Chloride 98 mmol/L (98-107); Estimated GFR-MDRD Greater than 90; Globulin 6.4 g/dL (2.4-3.5); Glucose 109 mg/dL (70-105); Potassium 3.5 mmol/L (3.5-5.1); Protein, Total 9.5 g/dL (6.0-8.3); Sodium 133 mmol/L (136-145)
== END 2018-07-13 19:33 | disposition short-term general hospital (02) ==
LOC: BURERS 17:01
DX: A41.9 Sepsis, unspecified organism (principal); L03.111 Cellulitis of right axilla
CPT/HCPCS: 36415; 80053; 83605; 85025; 87040; 94760; 96365; 96375; J2543; J3010; J3370; J3490

== ENCOUNTER 2018-08-26 20:42 | Emergency (ER) | payer OTHER ==
[2018-08-26] MEDS ORDERED: Fentanyl 100 MCG/2 ML VIAL ONE (20:54)
[2018-08-26 21:38] LABS: #Basophils 0.1 thou/uL (0.0-0.2); #Eosinphils 0.1 thou/uL (0.0-0.7); #Lymphocytes 4.5 thou/uL (1.20-3.40); #Monocytes 0.9 thou/uL (0.11-0.59); #Neutrophils 17.9 thou/uL (1.40-6.50); %Basophils 0.6 % (0.0-1.0); %Eosinophils 0.5 % (0.0-10.0); %Lymphocytes 18.9 % (21.0-51.0); %Monocytes 3.7 % (0.0-10.0); %Neutrophils 76.3 % (42.0-75.0); Hemoglobin 12.9 g/dL (14.0-18.0); Mean Corpuscular HGB CONC 30.9 g/dL (32.0-36.0); Mean Corpuscular Hemoglobin 25.2 pg (27.0-31.0); Mean Corpuscular Volume 81.6 fL (78.0-98.0); Mean Platelet Volume 5.2 fL (7.4-10.4); Platelet Count 433 thou/uL (130-400); RBC Distribution Width 15.1 % (11.5-14.5); Red Blood Cell (RBC) Count 5.13 mill/uL (4.70-6.10); White Blood Cell (WBC) Count 23.5 thou/uL (4.8-10.8)
[2018-08-26 21:46] LABS: ALT (SGPT) 19 U/L (8-55); AST (SGOT) 19 U/L (5-34); Albumin 3.5 g/dL (3.5-5.0); Alkaline Phosphatase 148 U/L (40-150); Anion Gap 19 mmol/L (10-20); BUN (Urea Nitrogen) 6 mg/dL (8.9-20.6); Bilirubin, Total 0.4 mg/dL (0.2-1.2); Calc. Creatinine Clearance 0 mL/min (70-130); Calcium 9.9 mg/dL (7.8-10.44); Carbon Dioxide 23 mmol/L (22-29); Chloride 97 mmol/L (98-107); Estimated GFR-MDRD Greater than 90; Globulin 6.4 g/dL (2.4-3.5); Glucose 92 mg/dL (70-105); Potassium 3.8 mmol/L (3.5-5.1); Protein, Total 9.9 g/dL (6.0-8.3); Sodium 135 mmol/L (136-145)
[2018-08-26] MEDS ORDERED: HYDROcodone/Acetaminophen 5/325 mg Tablet ONE (21:56)
[2018-08-26] MEDS ORDERED: Cephalexin 500 MG CAP ONE (21:57)
[2018-08-26] MEDS ORDERED: Sulfameth/Trimethoprim DS 800-160mg TAB ONE (21:57)
== END 2018-08-26 23:48 | disposition home or self-care (01) ==
LOC: BURERS 20:42
DX: L02.214 Cutaneous abscess of groin (principal); L02.31 Cutaneous abscess of buttock; L02.419 Cutaneous abscess of limb, unspecified
CPT/HCPCS: 80053; 83605; 85025; 96361; 96374; J3010

== ENCOUNTER 2018-08-31 21:28 | Inpatient (IN) | payer OTHER ==
[2018-08-31] MEDS ORDERED: Fentanyl 100 MCG/2 ML VIAL ONE (21:57)
[2018-08-31] MEDS ORDERED: Ketorolac Tromethamine 30 MG/ML VIAL ONE (21:57)
[2018-08-31] MEDS ORDERED: metroNIDAZOLE 500 MG/100 ML BAG ONE (22:24)
[2018-08-31 22:27] LABS: ALT (SGPT) 22 U/L (8-55); AST (SGOT) 20 U/L (5-34); Albumin 3.5 g/dL (3.5-5.0); Alkaline Phosphatase 197 U/L (40-150); Anion Gap 19 mmol/L (10-20); BUN (Urea Nitrogen) 11 mg/dL (8.9-20.6); Bilirubin, Total Less than 0.2 mg/dL (0.2-1.2); Calc. Creatinine Clearance 0 mL/min (70-130); Carbon Dioxide 23 mmol/L (22-29); Chloride 97 mmol/L (98-107); Estimated GFR-MDRD 87; Glucose 150 mg/dL (70-105); Potassium 3.9 mmol/L (3.5-5.1); Protein, Total 10.5 g/dL (6.0-8.3); Sodium 135 mmol/L (136-145)
[2018-08-31 22:38] LABS: #Basophils 0.1 thou/uL (0.0-0.2); #Eosinphils 0.1 thou/uL (0.0-0.7); #Neutrophils 19.1 thou/uL (1.40-6.50); %Basophils 0.5 % (0.0-1.0); %Eosinophils 0.4 % (0.0-10.0); %Lymphocytes 12.9 % (21.0-51.0); %Monocytes 4.1 % (0.0-10.0); %Neutrophils 82.1 % (42.0-75.0); Anisocytosis SLIGHT = 6-15 cells (100X) (0-5/hpf); Hypochromia SLIGHT = 6-15 cells (100X) (0-5/hpf); MDiff Complete? YES; Mean Corpuscular HGB CONC 30.9 g/dL (32.0-36.0); Mean Corpuscular Volume 80.9 fL (78.0-98.0); Mean Platelet Volume 5.1 fL (7.4-10.4); Platelet Count 451 thou/uL (130-400); Platelet Morphology Comment Appears Increased; Red Blood Cell (RBC) Count 5.21 mill/uL (4.70-6.10); Small Platelets SLIGHT; White Blood Cell (WBC) Count 23.3 thou/uL (4.8-10.8)
[2018-08-31] MEDS ORDERED: cefTRIAXone\\ROCEPHIN 2 GM VIAL ONE (22:59)
[2018-09-01] MEDS ORDERED: HYDROcodone/Acetaminophen 5/325 mg Tablet PO PRN (00:08)
[2018-09-01] MEDS ORDERED: Acetaminophen 325 MG TAB PO PRN (00:08)
[2018-09-01] MEDS ORDERED: Ondansetron PF 4 MG/2 ML Vial IVP PRN (00:08)
[2018-09-01] MEDS ORDERED: Ondansetron ODT 4 MG TAB SL PRN (00:08)
[2018-09-01] MEDS ORDERED: Dextrose 5 %-0.45 % NaCl 1,000 ML IV SCH (00:15)
[2018-09-01 01:08] VITALS: BMI 19.3
[2018-09-01 01:16] LABS: Clarity Slightly Cloudy (Clear); Glucose, Urine (Dipstick) Negative (Negative); Leukocyte Trace (Negative); Nitrite Negative (Negative); Protein, Urine (Dipstick) Trace mg/dL (Neg-Trace)
[2018-09-01 01:17] LABS: Bilirubin Small (Negative); Blood, Urine Trace (Negative)
[2018-09-01 01:18] LABS: Bacteria/HPF 1+ HPF (None Seen); Squamous Epithelial 0-3 HPF (0-3)
[2018-09-01] MEDS: metroNIDAZOLE 500 MG in Premix Bag 1 BAG IVPB SCH ×4 (05:17→23:06)
[2018-09-01 05:22] LABS: Lactic Acid 1.4 mmol/L (0.5-2.2)
[2018-09-01 05:41] LABS: Anion Gap 12 mmol/L (10-20)
[2018-09-01 05:49] LABS: Platelet Count 340 thou/uL (130-400)
[2018-09-01 05:57] LABS: Band 3 % (5-11); Eosinophils 1 % (0-10); Hemoglobin 10.5 g/dL (14.0-18.0); Hypochromia SLIGHT = 6-15 cells (100X) (0-5/hpf); Lymphocytes 18 % (21-51); MDiff Complete? YES; Mean Corpuscular HGB CONC 31.5 g/dL (32.0-36.0); Mean Corpuscular Hemoglobin 25.3 pg (27.0-31.0); Mean Corpuscular Volume 80.4 fL (78.0-98.0); Mean Platelet Volume 5.4 fL (7.4-10.4); Microcytosis SLIGHT = 6-15 cells (100X) (0-5/hpf); Monocytes 5 % (0-10); Neutrophil 72 % (42-75); Platelet Morphology Comment Appears Adequate; RBC Distribution Width 14.9 % (11.5-14.5); Red Blood Cell (RBC) Count 4.14 mill/uL (4.70-6.10); Small Platelets SLIGHT; White Blood Cell (WBC) Count 21.4 thou/uL (4.8-10.8)
[2018-09-01 06:13] LABS: BUN (Urea Nitrogen) 9 mg/dL (8.9-20.6); Calc. Creatinine Clearance 104 mL/min (70-130); Calcium 8.4 mg/dL (7.8-10.44); Carbon Dioxide 24 mmol/L (22-29); Chloride 100 mmol/L (98-107); Estimated GFR-MDRD Greater than 90; Glucose 99 mg/dL (70-105); Potassium 3.6 mmol/L (3.5-5.1); Sodium 132 mmol/L (136-145)
[2018-09-01] MEDS ORDERED: ISOTRETINOIN PO SCH (09:00)
[2018-09-01] MEDS ORDERED: Non-Formulary Item 1 EACH (Omeprazole [Omeprazole] 20 MG) PO SCH (09:00)
[2018-09-01] MEDS: Vancomycin HCl 1 GM in Sodium Chloride 0.9% 250 ML 250 ML IVPB SCH ×2 (09:30→20:26)
[2018-09-01] MEDS: Saccharomyces boulardii 250 MG CAP PO SCH (09:36)
[2018-09-01] MEDS: Dextrose 5 %-0.45 % NaCl 1,000 ML IV SCH (09:46)
[2018-09-01] MEDS: ISOTRETINOIN PO SCH (12:00)
[2018-09-01] MEDS: HYDROcodone/Acetaminophen 5/325 mg Tablet PO PRN ×2 (13:12→20:25)
--- NOTE | 2018-09-01 14:39 | HP ---
CHIEF COMPLAINT: Sepsis related to draining abscesses from hidradenitis suppurativa. HISTORY OF PRESENT ILLNESS: A 28-year-old male with underlying hidradenitis suppurativa, who presented to the [facility] Emergency Department last night with complaints of intractable pain, poor intake and multiple draining abscesses. The patient denies having any fever in his home setting. However, upon workup here , he has noted leukocytosis with left shift and elevated lactic acid level, and he is notably tachycardic. He was subsequently started on intravenous fluid secondary to his poor intake and multiple antibiotics including vancomycin, metronidazole, and Rocephin. The patient received a Toradol injection and fentanyl in the emergency department, and he was admitted to the floor overnight. As of this morning, he does report to be more comfortable and he is sleepy at this time after having received recent pain medication. He does report his intake has been decreased, and he did have an episode of emesis last night. He has been provided Zofran for this thus far. He has multiple draining abscesses as noted. He has remained afebrile overnight, and his tachycardia has resolved. PAST MEDICAL HISTORY: Includes hidradenitis suppurativa, bipolar disorder, and gastroesophageal reflux disease. PAST SURGICAL HISTORY: Includes multiple incision and drainage of abscesses. SOCIAL HISTORY: Denies smoking or alcohol use. He has had prior marijuana use. ALLERGIES: NONE. FAMILY HISTORY: Noncontributory. CURRENT MEDICATIONS: Include: 1. Tylenol with codeine as needed. 2. Tramadol as needed. 3. Omeprazole 20 mg daily. 4. Isotretinoin 40 mg daily. REVIEW OF SYSTEMS: GENERAL: Denies fever, but has had significant pain related to skin abscesses. EAR, NOSE, AND THROAT: Denies sore throat, nasal drainage, or congestion. CARDIOVASCULAR: Denies chest pain. RESPIRATORY: Denies cough or shortness of breath. GASTROINTESTINAL: Denies abdominal pain. He has had nausea and vomiting. Denies diarrhea or constipation. GENITOURINARY: Denies dysuria. MUSCULOSKELETAL: Denies joint swelling. DERMATOLOGIC: He has multiple abscesses over his body. NEUROLOGIC: Denies headache. LABORATORY DATA: White blood cell count as of this morning is 21.4, hemoglobin and hematocrit of 10.5 and 33.3, platelets are 340. Sodium is 132, potassium is 3.6 , BUN is 9, creatinine 0.87, GFR is greater than 90, glucose 99. His lactic acid had decreased from 2.7 down to 1.4. His urinalysis showed trace ketones, trace blood, negative for nitrites, trace leukocyte esterase. PHYSICAL EXAMINATION: VITAL SIGNS: Current vital signs; temperature is 98.1, pulse is 66, respiratory rate is 18, oxygen is 98% on room air, and blood pressure is 107/52. GENERAL: He is alert. He is drowsy at this time, in no acute distress. HEENT: Face, no asymmetry. He has acne scarring. Eyes, extraocular muscles are intact bilaterally. No discharge. Head, eyes, ears, nose, and throat are within normal limits. Oral cavity, he has dry mucous membranes. NECK: Supple without meningeal signs. No lymphadenopathy. CARDIOVASCULAR: Regular rate and rhythm. Normal S1 and S2. No murmurs, rubs, or gallops. RESPIRATORY: Clear to auscultation bilaterally without wheezes, rales, or rhonchi. GASTROINTESTINAL: Soft and nontender to palpation. No masses. No rebound or guarding. EXTREMITIES: No clubbing, cyanosis, or edema. SKIN: He has multiple small pustules to the skin intermixed with larger pustules as well as scars noted throughout the skin. He has multiple draining abscesses around his neck and axilla. NEUROLOGIC: Nonfocal with cranial nerves 2 through 12 grossly intact. ASSESSMENT AND PLAN: 1. Sepsis with multiple draining abscesses from underlying hidradenitis suppurativa. The patient will be continued on his IV antibiotic therapy including vancomycin , Rocephin, and Flagyl. We will plan to taper this down as his labs improve, we will trend his labs accordingly. We will seek a wound care evaluation and treatment secondary to his multiple draining abscesses. 2. Intractable pain. The patient will be continued on hydrocodone for pain control with ibuprofen for breakthrough pain. 3. Bipolar disorder. This is a stable issue for which he is not actively taking medication. He is followed regularly for this at [facility] locally. 4. Dehydration. The patient was started on D5 half-normal saline at 150 mL overnight secondary to his poor intake related to nausea and vomiting. I will reduce this to half at 75 mL an hour and I have encouraged the patient to re- attempt oral intake today. We will plan to discontinue this tomorrow as tolerated. 5. Nausea and vomiting. We will provide Zofran for this. 6. Gastroesophageal reflux disease. He will be continued on his proton pump inhibitor. 7. Prophylaxis. The patient will be started on Florastor for gastrointestinal prophylaxis and Lovenox for deep venous thrombosis prophylaxis. CODE STATUS: Full. DISPOSITION: We will plan to discharge the patient home on normalization of his labs and improvement of his pain control. Job ID: [id number] MTDD
[2018-09-01] MEDS ORDERED: Enoxaparin Sodium 30 MG/0.3 ML SYRINGE SC SCH ×2 (15:00→21:00)
[2018-09-01] MEDS: Enoxaparin Sodium 40 MG/0.4 ML SYRINGE SC SCH (20:27)
[2018-09-01] MEDS: cefTRIAXone\\ROCEPHIN 1 GM in Sodium Chloride 0.9% 100 ML IVPB SCH (21:58)
[2018-09-02] MEDS: metroNIDAZOLE 500 MG in Premix Bag 1 BAG IVPB SCH (05:37)
[2018-09-02] MEDS: HYDROcodone/Acetaminophen 5/325 mg Tablet PO PRN ×3 (05:47→21:09)
[2018-09-02 05:51] LABS: ALT (SGPT) 14 U/L (8-55); AST (SGOT) 14 U/L (5-34); Albumin 2.7 g/dL (3.5-5.0); Alkaline Phosphatase 148 U/L (40-150); Anion Gap 9 mmol/L (10-20); BUN (Urea Nitrogen) 5 mg/dL (8.9-20.6); Bilirubin, Total Less than 0.2 mg/dL (0.2-1.2); Calc. Creatinine Clearance 132 mL/min (70-130); Calcium 8.7 mg/dL (7.8-10.44); Carbon Dioxide 25 mmol/L (22-29); Chloride 105 mmol/L (98-107); Estimated GFR-MDRD Greater than 90; Globulin 5.2 g/dL (2.4-3.5); Glucose 97 mg/dL (70-105); Protein, Total 7.9 g/dL (6.0-8.3); Sodium 135 mmol/L (136-145)
[2018-09-02] MEDS: Dextrose 5 %-0.45 % NaCl 1,000 ML IV SCH (05:52)
[2018-09-02 05:54] LABS: #Basophils 0.2 thou/uL (0.0-0.2); #Eosinphils 0.3 thou/uL (0.0-0.7); #Lymphocytes 3.4 thou/uL (1.20-3.40); #Monocytes 0.9 thou/uL (0.11-0.59); #Neutrophils 14.3 thou/uL (1.40-6.50); %Eosinophils 1.5 % (0.0-10.0); %Lymphocytes 17.8 % (21.0-51.0); %Monocytes 4.6 % (0.0-10.0); %Neutrophils 75.2 % (42.0-75.0); Hemoglobin 10.5 g/dL (14.0-18.0); Mean Corpuscular HGB CONC 31.7 g/dL (32.0-36.0); Mean Corpuscular Hemoglobin 25.6 pg (27.0-31.0); Mean Corpuscular Volume 80.6 fL (78.0-98.0); Mean Platelet Volume 4.9 fL (7.4-10.4); Platelet Count 324 thou/uL (130-400); Red Blood Cell (RBC) Count 4.12 mill/uL (4.70-6.10)
[2018-09-02 08:14] LABS: Vancomycin, Trough 5.3 ug/mL
[2018-09-02] MEDS: Vancomycin HCl 1 GM in Sodium Chloride 0.9% 250 ML 250 ML IVPB SCH ×2 (08:17→21:16)
[2018-09-02] MEDS: Saccharomyces boulardii 250 MG CAP PO SCH (08:20)
[2018-09-02] MEDS: ISOTRETINOIN PO SCH (10:38)
[2018-09-02] MEDS: Ibuprofen 800 MG TAB PO PRN (17:37)
[2018-09-02 20:32] LABS: Vancomycin, Trough 5.1 ug/mL
[2018-09-02] MEDS: Enoxaparin Sodium 40 MG/0.4 ML SYRINGE SC SCH (21:17)
[2018-09-02] MEDS: cefTRIAXone\\ROCEPHIN 1 GM in Sodium Chloride 0.9% 100 ML IVPB SCH (22:43)
[2018-09-03] MEDS: Ibuprofen 800 MG TAB PO PRN (02:00)
[2018-09-03 04:36] VITALS: BP 119/66; TEMP 97.8
[2018-09-03 05:33] LABS: Anion Gap 12 mmol/L (10-20); BUN (Urea Nitrogen) 5 mg/dL (8.9-20.6); Calc. Creatinine Clearance 128 mL/min (70-130); Calcium 8.9 mg/dL (7.8-10.44); Carbon Dioxide 25 mmol/L (22-29); Chloride 104 mmol/L (98-107); Estimated GFR-MDRD Greater than 90; Glucose 87 mg/dL (70-105); Potassium 3.9 mmol/L (3.5-5.1); Sodium 137 mmol/L (136-145)
[2018-09-03] MEDS ORDERED: Vancomycin HCl 1 GM in Sodium Chloride 0.9% 250 ML 250 ML IVPB SCH (06:00)
[2018-09-03 06:11] LABS: Band 2 % (5-11); Eosinophils 1 % (0-10); Hemoglobin 10.7 g/dL (14.0-18.0); Lymphocytes 13 % (21-51); MDiff Complete? YES; Mean Corpuscular HGB CONC 32.1 g/dL (32.0-36.0); Mean Corpuscular Hemoglobin 25.7 pg (27.0-31.0); Mean Corpuscular Volume 80.2 fL (78.0-98.0); Mean Platelet Volume 5.4 fL (7.4-10.4); Monocytes 11 % (0-10); Neutrophil 72 % (42-75); Platelet Count 332 thou/uL (130-400); Platelet Morphology Comment Appears Adequate; RBC Distribution Width 14.8 % (11.5-14.5); RBC Morphology Normal; Red Blood Cell (RBC) Count 4.16 mill/uL (4.70-6.10); Toxic Granulation SLIGHT; White Blood Cell (WBC) Count 20.2 thou/uL (4.8-10.8)
[2018-09-03] MEDS: Saccharomyces boulardii 250 MG CAP PO SCH (10:05)
[2018-09-03] MEDS: ISOTRETINOIN PO SCH (10:11)
[2018-09-03] MEDS: HYDROcodone/Acetaminophen 5/325 mg Tablet PO PRN (12:13)
--- NOTE | 2018-09-05 08:35 | DIS ---
DATE OF ADMISSION: 08/31/2018 DATE OF DISCHARGE: 09/03/2018 ADMISSION DIAGNOSES: 1. Sepsis related to draining abscesses from underlying hidradenitis suppurativa. 2. Nausea, vomiting with dehydration. SECONDARY DIAGNOSES: Bipolar disorder, gastroesophageal reflux disease. PROCEDURES: Wound care. HOSPITAL COURSE: A 28-year-old male with underlying hidradenitis suppurativa, presented to the [facility] Emergency Department with complaints of intractable pain, poor intake related to nausea and vomiting and multiple draining abscesses. The patient's workup did reveal leukocytosis with a left shift along with elevated lactic acid level. He was afebrile, but notably tachycardic. Secondary to acute worsening of his underlying condition in conjunction with his poor intake, he was admitted to the floor. He was started on IV antibiotics including vancomycin, metronidazole, and Rocephin. He was provided pain medication. He was started on D5 half-normal saline. As the patient's oral intake increased, his IV fluids were discontinued. He received regular wound care for his draining abscesses and his vitals stabilized. His pain has been well controlled. He has remained afebrile throughout his stay. His blood cultures have returned to show no growth to date. His bacterial wound cultures finalized showing mixed skin [place] and also his urine culture shows no growth. Secondary to the patient's normal vitals, stable pain control, improved oral intake back to baseline, and stable lab work, he is appropriate and amenable to discharge home at this time. We will discharge him with further pain control medication and a 1 week course of p.o. doxycycline. DISPOSITION: The patient will discharge home and then follow up with myself in the clinic next week. He has been advised to follow up with his sales project administrator, of whom he does not recall the name, but apparently is at [facility]. DISCHARGE MEDICATIONS: Includes; 1. Doxycycline 100 mg p.o. b.i.d. x7 days. 2. [place] 10/325 mg q.6 hours p.r.n. 3. Isotretinoin and omeprazole 20 mg daily. Job ID: [id number] [facility]
== END 2018-09-03 13:30 | disposition home or self-care (01) | DRG 872 ==
LOC: BURERS 21:28 → BURMED 22:50
PROVIDERS: ADMIT Family Medicine; ATTEND Family Medicine
DX: A41.9 Sepsis, unspecified organism (principal); L02.91 Cutaneous abscess, unspecified; L73.2 Hidradenitis suppurativa; R52 Pain, unspecified; F31.9 Bipolar disorder, unspecified; E86.0 Dehydration; K21.9 Gastro-esophageal reflux disease without esophagitis; R11.2 Nausea with vomiting, unspecified
CPT/HCPCS: 36415; 80048; 80053; 80202; 81003; 81015; 83605; 85025; 87040; 87070; 87086; 87205; 96365; 96366; 96368; 96375; J0696; J1650; J1885; J2405; J3010; J3370; J3490; J7050; Q0162

== ENCOUNTER 2018-09-30 21:05 | Emergency (ER) | payer OTHER ==
[2018-09-30] MEDS ORDERED: Morphine 10 MG/ML VIAL ONE (21:43)
[2018-09-30] MEDS ORDERED: Ketorolac Tromethamine 30 MG/ML VIAL ONE (21:44)
[2018-09-30 21:55] LABS: #Basophils 0.1 thou/uL (0.0-0.2); #Eosinphils 0.2 thou/uL (0.0-0.7); #Lymphocytes 3.5 thou/uL (1.20-3.40); #Monocytes 0.6 thou/uL (0.11-0.59); #Neutrophils 18.2 thou/uL (1.40-6.50); %Basophils 0.4 % (0.0-1.0); %Eosinophils 0.8 % (0.0-10.0); %Lymphocytes 15.5 % (21.0-51.0); %Monocytes 2.8 % (0.0-10.0); %Neutrophils 80.5 % (42.0-75.0); Hemoglobin 11.3 g/dL (14.0-18.0); Mean Corpuscular HGB CONC 31.7 g/dL (32.0-36.0); Mean Corpuscular Hemoglobin 25.4 pg (27.0-31.0); Mean Corpuscular Volume 80.3 fL (78.0-98.0); Mean Platelet Volume 4.8 fL (7.4-10.4); Platelet Count 463 thou/uL (130-400); RBC Distribution Width 15.2 % (11.5-14.5); Red Blood Cell (RBC) Count 4.45 mill/uL (4.70-6.10); White Blood Cell (WBC) Count 22.6 thou/uL (4.8-10.8)
[2018-09-30 22:10] LABS: ALT (SGPT) 22 U/L (8-55); AST (SGOT) 41 U/L (5-34); Albumin 3.3 g/dL (3.5-5.0); Alkaline Phosphatase 230 U/L (40-150); Anion Gap 18 mmol/L (10-20); BUN (Urea Nitrogen) 5 mg/dL (8.9-20.6); Bilirubin, Total 0.3 mg/dL (0.2-1.2); Calc. Creatinine Clearance 0 mL/min (70-130); Calcium 9.6 mg/dL (7.8-10.44); Carbon Dioxide 22 mmol/L (22-29); Chloride 101 mmol/L (98-107); Estimated GFR-MDRD Greater than 90; Globulin 7.6 g/dL (2.4-3.5); Glucose 85 mg/dL (70-105); Potassium 4.5 mmol/L (3.5-5.1); Protein, Total 10.9 g/dL (6.0-8.3); Sodium 136 mmol/L (136-145)
[2018-09-30] MEDS ORDERED: HYDROcodone/Acetaminophen 5/325 mg Tablet ONE (23:28)
[2018-09-30] MEDS ORDERED: Ondansetron ODT 4 MG TAB ONE (23:28)
[2018-09-30] MEDS ORDERED: HYDROcodone/Acetaminophen 10/325 mg Tablet ONE (23:29)
== END 2018-09-30 23:33 | disposition home or self-care (01) ==
LOC: BURERS 21:05
DX: L02.31 Cutaneous abscess of buttock (principal); L02.211 Cutaneous abscess of abdominal wall; L02.411 Cutaneous abscess of right axilla; L02.412 Cutaneous abscess of left axilla
CPT/HCPCS: 36415; 80053; 83605; 85025; 87040; 96361; 96374; 96375; J1885; J2270; Q0162

== ENCOUNTER 2018-10-01 11:42 | Emergency (ER) | payer OTHER ==
[2018-10-01] MEDS ORDERED: Morphine 4 MG/ML VIAL ONE (12:15)
[2018-10-01] MEDS ORDERED: Ketorolac Tromethamine 30 MG/ML VIAL ONE (12:16)
== END 2018-10-01 12:55 | disposition home or self-care (01) ==
LOC: BURERS 11:42
DX: L73.2 Hidradenitis suppurativa (principal)
CPT/HCPCS: 96372; 99284; J1885; J2270

== ENCOUNTER 2018-10-19 10:39 | Inpatient (IN) | payer OTHER ==
[2018-10-19] MEDS ORDERED: Ketorolac Tromethamine 30 MG/ML VIAL ONE (11:06)
[2018-10-19] MEDS ORDERED: methylPREDNISolone Sod Succ/PF 125 MG/2 ML VIAL ONE (11:06)
[2018-10-19] MEDS ORDERED: Piperacillin/Tazobactam 4.5 GM VIAL ONE (11:06)
[2018-10-19] MEDS ORDERED: Sodium Chloride 0.9% 100 ML ONE (11:08)
[2018-10-19 11:40] LABS: #Basophils 0.1 thou/uL (0.0-0.2); #Eosinphils 0.2 thou/uL (0.0-0.7); #Lymphocytes 2.8 thou/uL (1.20-3.40); #Neutrophils 19.5 thou/uL (1.40-6.50); %Basophils 0.6 % (0.0-1.0); %Eosinophils 0.8 % (0.0-10.0); %Lymphocytes 11.7 % (21.0-51.0); %Monocytes 4.3 % (0.0-10.0); %Neutrophils 82.7 % (42.0-75.0); Hemoglobin 11.2 g/dL (14.0-18.0); Mean Corpuscular HGB CONC 30.6 g/dL (32.0-36.0); Mean Corpuscular Hemoglobin 24.7 pg (27.0-31.0); Mean Corpuscular Volume 80.8 fL (78.0-98.0); Mean Platelet Volume 4.8 fL (7.4-10.4); Platelet Count 577 thou/uL (130-400); RBC Distribution Width 15.4 % (11.5-14.5); Red Blood Cell (RBC) Count 4.53 mill/uL (4.70-6.10); White Blood Cell (WBC) Count 23.6 thou/uL (4.8-10.8)
[2018-10-19 11:57] LABS: ALT (SGPT) 53 U/L (8-55); AST (SGOT) 44 U/L (5-34); Albumin 3.3 g/dL (3.5-5.0); Alkaline Phosphatase 269 U/L (40-150); Anion Gap 19 mmol/L (10-20); BUN (Urea Nitrogen) 7 mg/dL (8.9-20.6); Bilirubin, Total 0.4 mg/dL (0.2-1.2); Calc. Creatinine Clearance 0 mL/min (70-130); Calcium 9.7 mg/dL (7.8-10.44); Carbon Dioxide 20 mmol/L (22-29); Chloride 102 mmol/L (98-107); Estimated GFR-MDRD Greater than 90; Globulin 7.5 g/dL (2.4-3.5); Glucose 90 mg/dL (70-105); Potassium 3.8 mmol/L (3.5-5.1); Protein, Total 10.8 g/dL (6.0-8.3); Sodium 137 mmol/L (136-145)
[2018-10-19 12:06] LABS: Platelet Morphology Comment Appears Increased; RBC Morphology Normal
[2018-10-19] MEDS ORDERED: Ondansetron ODT 4 MG TAB SL PRN (13:46)
[2018-10-19] MEDS ORDERED: Ondansetron PF 4 MG/2 ML Vial IVP PRN (13:46)
[2018-10-19] MEDS ORDERED: Acetaminophen 325 MG TAB PO PRN (13:46)
[2018-10-19 14:20] VITALS: BMI 18.8
[2018-10-19 15:23] LABS: Lactic Acid 4.3 mmol/L (0.5-2.2)
[2018-10-19] MEDS ORDERED: HYDROcodone/Acetaminophen 5/325 mg Tablet PO PRN (16:27)
[2018-10-19] MEDS: Piperacillin/Tazobactam 4.5 GM in Sodium Chloride 0.9% 100 ML IVPB SCH ×2 (16:43→23:29)
[2018-10-19] MEDS: HYDROcodone/Acetaminophen 5/325 mg Tablet PO PRN ×2 (17:46→23:41)
[2018-10-19] MEDS: Sodium Chloride 0.9% 1,000 ML IV SCH (17:48)
--- NOTE | 2018-10-19 18:36 | RAD ---
PORTABLE CHEST: 10/19/18 An AP portable film at 1211 is compared with a 06/23/18 study. The heart is normal in size and the lung s are clear. No infiltrate or effusion was seen. There is no sign of pneumonia. IMPRESSION: No acute thoracic findings. POS: HOME
[2018-10-19] MEDS: Famotidine 20 MG TAB PO SCH (21:02)
--- NOTE | 2018-10-19 23:42 | HP ---
CHIEF COMPLAINT: Sepsis related to draining abscesses, some underlying hidradenitis suppurativa. HISTORY OF PRESENT ILLNESS: A 28-year-old male with underlying hidradenitis suppurativa, presented to the [facility] Emergency Department earlier today with complaints of worsening pain related to multiple draining abscesses along with some poor oral intake; he reports this to have worsened over the last two weeks. The patient has been treated by a vp [employer] in [place] with isotretinoin; however , he reports to be out of this medication for the last 1 to 2 months. He has also been out of his typical pain medication, which is p.r.n. hydrocodone and thus, he has been taking Advil for his discomfort; however, this has proved to be insufficient. Workup in the emergency department revealed leukocytosis with white blood cell count of 23.6 and a left shift. Of note, he does have chronic leukocytosis related to his underlying condition. The patient's lactic acid level is elevated as well initially at 3.2 and a recheck between 5 and 6 hours later shows this to have increased to 4.3. His vital signs are otherwise stable, and he denies having a noted fever at home. In the emergency department, he received normal saline, vancomycin, Zosyn , morphine, Toradol, and Solu-Medrol and he has now been transitioned to the floor for further treatment. At this time, he appears comfortable and notably has multiple draining skin lesions to his trunk and upper extremities. PAST MEDICAL HISTORY: Hidradenitis suppurativa, bipolar disorder, and gastroesophageal reflux. PAST SURGICAL HISTORY: Multiple I and D of abscesses. SOCIAL HISTORY: Denies EtOH or smoking; prior marijuana use. ALLERGIES: NONE. FAMILY HISTORY: Noncontributory. CURRENT MEDICATIONS: 1. [place] 5/325 one to two tabs q.6 hours p.r.n. 2. He was previously prescribed isotretinoin; however, he has been out of this medication for the last 1 to 2 months. REVIEW OF SYSTEMS: GENERAL: Denies fever. EAR, NOSE, AND THROAT: Denies sore throat, nasal drainage, or congestion. CARDIOVASCULAR: Denies chest pain or palpitation. RESPIRATORY: Denies cough or shortness of breath. GASTROINTESTINAL: Denies abdominal pain, nausea, or vomiting. Denies diarrhea or constipation. GENITOURINARY: Denies dysuria. MUSCULOSKELETAL: Denies joint swelling. DERMATOLOGIC: Multiple abscesses over trunk and extremities. NEUROLOGIC: Denies headache. LABORATORY DATA: White blood cell count is 23.6, hemoglobin 11.2, hematocrit 36.6, and platelets 577. Sodium 137, potassium 3.8, BUN is 7, creatinine 0.80 with a GFR greater than 90, glucose is 90. Initial lactic acid 3.2. Subsequent lactic acid 4.3. AST 44 and ALT 53. Chest x-ray is pending. PHYSICAL EXAMINATION: VITAL SIGNS: Temperature is 97.8, pulse is 73, respiratory rate is 18, oxygen is 100% on room air, and blood pressure is 124/72. GENERAL: He is alert and oriented, in no acute distress. HEAD, EYES, EARS, NOSE, AND THROAT: Normocephalic and atraumatic. Extraocular muscles are intact bilaterally. Oral cavity shows dry mucous membranes. NECK: Supple without meningeal sign. CARDIOVASCULAR: Regular rate and rhythm. Normal S1, S2. No murmurs, rubs, or gallops. RESPIRATORY: Clear to auscultation bilaterally without wheezes, rales, or rhonchi. GASTROINTESTINAL: Soft, nontender to palpation. No masses. EXTREMITIES: No clubbing, cyanosis, or edema. SKIN: Multiple small pustules to the skin intermixed with larger pustules as well as scars noted throughout the skin of the trunk and extremities. Multiple draining abscesses to the trunk and extremities. NEUROLOGIC: Nonfocal with cranial nerves 2 through 12 grossly intact. ASSESSMENT AND PLAN: 1. Sepsis with multiple draining abscesses from underlying hidradenitis suppurativa. We will resume the patient on IV vancomycin and Zosyn. We will trend his CBC and lactic acid level and follow up his blood cultures. We will provide wound care per protocol. We will provide [place] for pain control. 2. Dehydration. We will provide the patient with normal saline IV fluids overnight and reassess this tomorrow morning. 3. Prophylaxis. We will provide the patient with Florastor and famotidine for GI prophylaxis along with Lovenox for deep venous thrombosis prophylaxis. Job ID: [id number] [facility]
[2018-10-20] MEDS: Vancomycin HCl 500 MG in Sodium Chloride 0.9% 100 ML IVPB SCH ×3 (00:21→23:30)
[2018-10-20] MEDS: Piperacillin/Tazobactam 4.5 GM in Sodium Chloride 0.9% 100 ML IVPB SCH ×4 (04:16→22:54)
[2018-10-20 05:39] LABS: #Lymphocytes 2.3 thou/uL (1.20-3.40); #Monocytes 0.9 thou/uL (0.11-0.59); #Neutrophils 19.7 thou/uL (1.40-6.50); %Basophils 0.2 % (0.0-1.0); %Eosinophils 0.1 % (0.0-10.0); %Lymphocytes 9.9 % (21.0-51.0); %Monocytes 4.1 % (0.0-10.0); %Neutrophils 85.8 % (42.0-75.0); Hemoglobin 9.8 g/dL (14.0-18.0); Mean Corpuscular Volume 80.8 fL (78.0-98.0); Mean Platelet Volume 4.9 fL (7.4-10.4); Platelet Count 450 thou/uL (130-400); RBC Distribution Width 15.6 % (11.5-14.5); Red Blood Cell (RBC) Count 3.92 mill/uL (4.70-6.10)
[2018-10-20 05:42] LABS: ALT (SGPT) 40 U/L (8-55); AST (SGOT) 30 U/L (5-34); Albumin 2.6 g/dL (3.5-5.0); Alkaline Phosphatase 221 U/L (40-150); Anion Gap 11 mmol/L (10-20); BUN (Urea Nitrogen) 7 mg/dL (8.9-20.6); Bilirubin, Total 0.3 mg/dL (0.2-1.2); Calc. Creatinine Clearance 133 mL/min (70-130); Calcium 8.8 mg/dL (7.8-10.44); Chloride 105 mmol/L (98-107); Estimated GFR-MDRD Greater than 90; Globulin 5.9 g/dL (2.4-3.5); Glucose 123 mg/dL (70-105); Potassium 4.4 mmol/L (3.5-5.1); Protein, Total 8.5 g/dL (6.0-8.3); Sodium 136 mmol/L (136-145)
[2018-10-20 05:50] LABS: Carbon Dioxide 24 mmol/L (22-29)
[2018-10-20] MEDS: Sodium Chloride 0.9% 1,000 ML IV SCH (05:56)
[2018-10-20] MEDS: HYDROcodone/Acetaminophen 5/325 mg Tablet PO PRN ×3 (09:07→23:42)
[2018-10-20] MEDS: Famotidine 20 MG TAB PO SCH ×2 (09:09→20:45)
[2018-10-20] MEDS: Saccharomyces boulardii 250 MG CAP PO SCH (09:09)
[2018-10-20] MEDS: Enoxaparin Sodium 40 MG/0.4 ML SYRINGE SC SCH (09:09)
[2018-10-20 22:25] LABS: Vancomycin, Trough 3.3 ug/mL
[2018-10-21 04:57] LABS: Anion Gap 11 mmol/L (10-20)
[2018-10-21 05:03] LABS: Band 1 % (5-11); Hypochromia SLIGHT = 6-15 cells (100X) (0-5/hpf); Lymphocytes 25 % (21-51); MDiff Complete? YES; Mean Corpuscular HGB CONC 31.7 g/dL (32.0-36.0); Mean Corpuscular Hemoglobin 25.3 pg (27.0-31.0); Mean Corpuscular Volume 79.7 fL (78.0-98.0); Microcytosis SLIGHT = 6-15 cells (100X) (0-5/hpf); Monocytes 8 % (0-10); Neutrophil 64 % (42-75); Platelet Count 418 thou/uL (130-400); Platelet Morphology Comment Appears Increased; RBC Distribution Width 15.3 % (11.5-14.5); Red Blood Cell (RBC) Count 3.57 mill/uL (4.70-6.10); Small Platelets SLIGHT; White Blood Cell (WBC) Count 19.2 thou/uL (4.8-10.8)
[2018-10-21] MEDS: Piperacillin/Tazobactam 4.5 GM in Sodium Chloride 0.9% 100 ML IVPB SCH ×3 (05:05→17:13)
[2018-10-21 05:18] LABS: ALT (SGPT) 35 U/L (8-55); AST (SGOT) 25 U/L (5-34); Albumin 2.5 g/dL (3.5-5.0); Alkaline Phosphatase 182 U/L (40-150); BUN (Urea Nitrogen) 5 mg/dL (8.9-20.6); Bilirubin, Total Less than 0.2 mg/dL (0.2-1.2); Calc. Creatinine Clearance 123 mL/min (70-130); Calcium 8.5 mg/dL (7.8-10.44); Carbon Dioxide 24 mmol/L (22-29); Chloride 108 mmol/L (98-107); Estimated GFR-MDRD Greater than 90; Globulin 5.4 g/dL (2.4-3.5); Glucose 83 mg/dL (70-105); Potassium 3.8 mmol/L (3.5-5.1); Protein, Total 7.9 g/dL (6.0-8.3); Sodium 139 mmol/L (136-145)
[2018-10-21] MEDS ORDERED: Sodium Chloride 0.9% 10 ML ONE (07:31)
[2018-10-21] MEDS: Enoxaparin Sodium 40 MG/0.4 ML SYRINGE SC SCH (09:28)
[2018-10-21] MEDS: Famotidine 20 MG TAB PO SCH ×2 (09:29→19:45)
[2018-10-21] MEDS: Saccharomyces boulardii 250 MG CAP PO SCH (09:29)
[2018-10-21] MEDS: HYDROcodone/Acetaminophen 5/325 mg Tablet PO PRN ×2 (11:35→17:46)
[2018-10-21] MEDS: Vancomycin HCl 500 MG in Sodium Chloride 0.9% 100 ML IVPB SCH (11:38)
[2018-10-21 17:21] VITALS: BP 109/65; TEMP 98.5
--- NOTE | 2018-10-22 03:59 | DIS ---
DATE OF ADMISSION: 10/19/2018 DATE OF DISCHARGE: 10/21/2018 ADMISSION DIAGNOSIS: Sepsis secondary to hidradenitis suppurativa with multiple draining abscesses and dehydration. PROCEDURE PERFORMED: Routine wound care. HOSPITAL COURSE: A 28-year-old male presented to the [facility] Emergency Department with exacerbation of his underlying condition of hidradenitis suppurativa including multiple draining abscesses with associated pain and poor oral intake, which progressed over a 2-week time period. The patient is followed by a conference manager in [place] and has prescribed Accutane, however, he reported to be out of this medication for the last 1 to 2 months. In addition to this, he was also out of his hydrocodone taken for his pain which explained his worsening pain symptoms. The patient was started on IV vancomycin and Zosyn after initial lab work revealed leukocytosis with left shift with white blood cell count of 23.6 and an elevated lactic acid of 3.2. The patient's lactic acid peaked at a level of 4.3. He does have chronic leukocytosis related to his hidradenitis. He was provided normal saline intravenous fluids overnight and thereafter transitioned to p.o. intake, which remained satisfactory. He remained afebrile throughout his stay. His white blood cell count decreased from a level of 23.6 to 19.2. His lactic acid level normalized as well. The patient's blood cultures showed no growth to date at 48 hours. Secondary to the patient's improved status, he is agreeable to discharge home at this time with refill of his pain medication for pain control, short course of oral antibiotics and prednisone taper. He has been encouraged to follow up with his conference manager in [place] and obtain a refill of his isotretinoin with continuation of care. DISPOSITION: The patient was discharged home, where he lives with his mother. He may follow up with myself in the clinic in 1 week and has been encouraged to follow up with the conference manager in [place]. DISCHARGE MEDICATIONS: 1. Prednisone taper. 2. [place] 10/325 q.6 hours p.r.n. 3. Keflex 500 mg p.o. b.i.d. x7 days. 4. Florastor probiotic 250 mg daily x10 days. 5. He has been encouraged to obtain a refill of isotretinoin, which I believe with dose to be 40 mg daily per his conference manager. Job ID: [id number]
== END 2018-10-21 20:05 | disposition home or self-care (01) | DRG 872 ==
LOC: BURERS 10:39 → BURMED 13:10
PROVIDERS: ADMIT Family Medicine; ATTEND Family Medicine
DX: A41.9 Sepsis, unspecified organism (principal); L73.2 Hidradenitis suppurativa; E86.0 Dehydration
CPT/HCPCS: 36415; 71045; 80053; 80202; 83605; 85007; 85025; 85027; 85060; 87040; 96361; 96365; 96367; 96375; 96376; J1650; J1885; J2270; J2543; J2930; J3370; J3490

== ENCOUNTER 2020-01-19 18:23 | Emergency (ER) | payer OTHER ==
[2020-01-19] MEDS ORDERED: Morphine 2 MG/ML VIAL ONE ×2 (18:53→21:37)
[2020-01-19] MEDS ORDERED: Ketorolac Tromethamine 30 MG/ML VIAL ONE (18:54)
[2020-01-19] MEDS ORDERED: Ondansetron PF 4 MG/2 ML Vial ONE (18:54)
[2020-01-19] MEDS ORDERED: metroNIDAZOLE 250 MG TAB ONE (18:54)
[2020-01-19] MEDS ORDERED: Piperacillin/Tazobactam 4.5 GM VIAL ONE (18:54)
[2020-01-19] MEDS ORDERED: Sodium Chloride 0.9% 100 ML ONE (18:55)
[2020-01-19 19:06] LABS: Hemoglobin 11.5 g/dL (14.0-18.0); Mean Corpuscular HGB CONC 31.6 g/dL (32.0-36.0); Mean Corpuscular Hemoglobin 26.1 pg (27.0-31.0); Mean Corpuscular Volume 82.6 fL (78.0-98.0); Mean Platelet Volume 5.6 fL (7.4-10.4); Platelet Count 432 thou/uL (130-400); RBC Distribution Width 14.9 % (11.5-14.5); Red Blood Cell (RBC) Count 4.41 mill/uL (4.70-6.10); White Blood Cell (WBC) Count 22.6 thou/uL (4.8-10.8)
[2020-01-19 19:19] LABS: ALT (SGPT) 17 U/L (8-55); AST (SGOT) 19 U/L (5-34); Albumin 3.1 g/dL (3.5-5.0); Alkaline Phosphatase 131 U/L (40-110); Anion Gap 17 mmol/L (10-20); BUN (Urea Nitrogen) 8 mg/dL (8.9-20.6); Bilirubin, Total 0.2 mg/dL (0.2-1.2); Calc. Creatinine Clearance 0 mL/min (70-130); Calcium 8.6 mg/dL (7.8-10.44); Carbon Dioxide 26 mmol/L (22-29); Chloride 100 mmol/L (98-107); Globulin 5.9 g/dL (2.4-3.5); Glucose 113 mg/dL (70-105); Potassium 3.6 mmol/L (3.5-5.1); Sodium 139 mmol/L (136-145)
[2020-01-19 19:20] LABS: Band 8 % (5-11); Eosinophils 2 % (0-10); Lymphocytes 13 % (21-51); MDiff Complete? YES; Monocytes 12 % (0-10); Neutrophil 65 % (42-75)
== END 2020-01-19 21:40 | disposition short-term general hospital (02) ==
LOC: BURERS 18:23
DX: L73.2 Hidradenitis suppurativa (principal); K65.9 Peritonitis, unspecified; L02.412 Cutaneous abscess of left axilla; L02.411 Cutaneous abscess of right axilla; I10 Essential (primary) hypertension; F17.210 Nicotine dependence, cigarettes, uncomplicated
CPT/HCPCS: 80053; 83605; 85025; 87040; 96365; 96368; 96375; 96376; J1885; J2270; J2405; J2543; J3370; J3490

== ENCOUNTER 2020-01-28 16:07 | Emergency (ER) | payer OTHER ==
[2020-01-28] MEDS ORDERED: Clindamycin 150 MG CAP ONE (16:45)
[2020-01-28] MEDS ORDERED: Morphine 10 MG/ML VIAL ONE (16:45)
[2020-01-28] MEDS ORDERED: Ondansetron ODT 4 MG TAB ONE (16:45)
[2020-01-28 17:40] LABS: Hemoglobin 10.5 g/dL (14.0-18.0); Mean Corpuscular HGB CONC 31.6 g/dL (32.0-36.0); Mean Corpuscular Hemoglobin 25.8 pg (27.0-31.0); Mean Corpuscular Volume 81.6 fL (78.0-98.0); Mean Platelet Volume 5.3 fL (7.4-10.4); Platelet Count 454 thou/uL (130-400); RBC Distribution Width 14.7 % (11.5-14.5); Red Blood Cell (RBC) Count 4.08 mill/uL (4.70-6.10); White Blood Cell (WBC) Count 23.2 thou/uL (4.8-10.8)
[2020-01-28 17:41] LABS: ALT (SGPT) 10 U/L (8-55); AST (SGOT) 13 U/L (5-34); Alkaline Phosphatase 125 U/L (40-110); Anion Gap 14 mmol/L (10-20); BUN (Urea Nitrogen) 9 mg/dL (8.9-20.6); Bilirubin, Total Less than 0.2 mg/dL (0.2-1.2); Calc. Creatinine Clearance 0 mL/min (70-130); Calcium 8.7 mg/dL (7.8-10.44); Carbon Dioxide 23 mmol/L (22-29); Chloride 102 mmol/L (98-107); Globulin 6.2 g/dL (2.4-3.5); Glucose 125 mg/dL (70-105); Potassium 3.9 mmol/L (3.5-5.1); Protein, Total 9.2 g/dL (6.0-8.3); Sodium 135 mmol/L (136-145)
[2020-01-28 17:46] LABS: Eosinophils 7 % (0-10); Lymphocytes 8 % (21-51); MDiff Complete? YES; Monocytes 5 % (0-10); Neutrophil 80 % (42-75)
[2020-01-28 19:07] LABS: Bilirubin Negative (Negative); Blood, Urine Negative (Negative); Clarity Clear (Clear); Glucose, Urine (Dipstick) Negative (Negative); Ketone, Urine Negative (Negative); Leukocyte Negative (Negative); Nitrite Negative (Negative); Protein, Urine (Dipstick) Negative (Neg-Trace); Urobilinogen 0.2 mg/dL (Less than 2)
== END 2020-01-28 19:32 | disposition home or self-care (01) ==
LOC: BURERS 16:07
DX: E86.0 Dehydration (principal); G89.29 Other chronic pain; I10 Essential (primary) hypertension; F17.210 Nicotine dependence, cigarettes, uncomplicated
CPT/HCPCS: 36415; 80053; 81003; 83605; 85025; 96372; 99283; J2270; Q0162

== ENCOUNTER 2020-02-04 14:58 | Emergency (ER) | payer OTHER ==
[2020-02-04] MEDS ORDERED: Cefepime 2 GM VIAL ONE (15:22)
[2020-02-04] MEDS ORDERED: Sodium Chloride 0.9% 100 ML ONE (15:22)
[2020-02-04 15:29] LABS: Hemoglobin 11.3 g/dL (14.0-18.0); Mean Corpuscular HGB CONC 31.1 g/dL (32.0-36.0); Mean Corpuscular Hemoglobin 25.4 pg (27.0-31.0); Mean Corpuscular Volume 81.7 fL (78.0-98.0); Mean Platelet Volume 5.1 fL (7.4-10.4); Platelet Count 587 thou/uL (130-400); RBC Distribution Width 14.8 % (11.5-14.5); Red Blood Cell (RBC) Count 4.46 mill/uL (4.70-6.10); White Blood Cell (WBC) Count 26.6 thou/uL (4.8-10.8)
[2020-02-04] MEDS ORDERED: Morphine 4 MG/ML VIAL ONE ×2 (15:36→16:04)
[2020-02-04 15:42] LABS: ALT (SGPT) 23 U/L (8-55); AST (SGOT) 18 U/L (5-34); Albumin 3.1 g/dL (3.5-5.0); Alkaline Phosphatase 252 U/L (40-110); Anion Gap 18 mmol/L (10-20); BUN (Urea Nitrogen) 10 mg/dL (8.9-20.6); Bilirubin, Total 0.5 mg/dL (0.2-1.2); Calc. Creatinine Clearance 0 mL/min (70-130); Calcium 9.5 mg/dL (7.8-10.44); Carbon Dioxide 23 mmol/L (22-29); Chloride 99 mmol/L (98-107); Globulin 7.2 g/dL (2.4-3.5); Glucose 109 mg/dL (70-105); Potassium 4.1 mmol/L (3.5-5.1); Protein, Total 10.3 g/dL (6.0-8.3); Sodium 136 mmol/L (136-145)
[2020-02-04 15:43] LABS: Band 10 % (5-11); Eosinophils 1 % (0-10); Lymphocytes 5 % (21-51); MDiff Complete? YES; Monocytes 14 % (0-10); Neutrophil 69 % (42-75); Reactive Lymphocytes 1 % (0-10)
[2020-02-04] MEDS ORDERED: Ondansetron PF 4 MG/2 ML Vial ONE (16:04)
== END 2020-02-04 17:07 | disposition short-term general hospital (02) ==
LOC: BURERS 14:58
DX: A41.9 Sepsis, unspecified organism (principal); I10 Essential (primary) hypertension; F17.210 Nicotine dependence, cigarettes, uncomplicated
CPT/HCPCS: 80053; 83605; 85025; 87040; 96365; 96375; J0692; J2270; J2405; J3370; J3490

== ENCOUNTER 2020-02-18 11:47 | Inpatient (IN) | payer OTHER ==
[~2020-02-18 11:47] MED LIST: Iopamidol 370 76% 100 ML VIAL ONE
[2020-02-18 12:35] LABS: #Basophils 0.1 thou/uL (0.0-0.2); #Eosinphils 0.3 thou/uL (0.0-0.7); #Lymphocytes 3.5 thou/uL (1.20-3.40); #Monocytes 0.7 thou/uL (0.11-0.59); #Neutrophils 23.1 thou/uL (1.40-6.50); %Basophils 0.2 % (0.0-1.0); %Eosinophils 1.2 % (0.0-10.0); %Lymphocytes 12.7 % (21.0-51.0); %Monocytes 2.5 % (0.0-10.0); %Neutrophils 83.5 % (42.0-75.0); Hemoglobin 11.1 g/dL (14.0-18.0); Mean Corpuscular HGB CONC 31.1 g/dL (32.0-36.0); Mean Corpuscular Hemoglobin 25.2 pg (27.0-31.0); Mean Corpuscular Volume 80.9 fL (78.0-98.0); Mean Platelet Volume 5.4 fL (7.4-10.4); Platelet Count 693 thou/uL (130-400); RBC Distribution Width 15.2 % (11.5-14.5); Red Blood Cell (RBC) Count 4.39 mill/uL (4.70-6.10); White Blood Cell (WBC) Count 27.7 thou/uL (4.8-10.8)
[2020-02-18] MEDS ORDERED: Fentanyl 100 MCG/2 ML VIAL ONE (12:47)
[2020-02-18] MEDS ORDERED: Piperacillin/Tazobactam 4.5 GM VIAL ONE (12:50)
[2020-02-18 12:51] LABS: ALT (SGPT) 35 U/L (8-55); AST (SGOT) 35 U/L (5-34); Albumin 3.5 g/dL (3.5-5.0); Alkaline Phosphatase 394 U/L (40-110); Anion Gap 19 mmol/L (10-20); BUN (Urea Nitrogen) 11 mg/dL (8.9-20.6); Bilirubin, Total 0.5 mg/dL (0.2-1.2); Calc. Creatinine Clearance 0 mL/min (70-130); Calcium 10.1 mg/dL (7.8-10.44); Carbon Dioxide 27 mmol/L (22-29); Chloride 94 mmol/L (98-107); Globulin 8.4 g/dL (2.4-3.5); Glucose 107 mg/dL (70-105); Potassium 3.7 mmol/L (3.5-5.1); Protein, Total 11.9 g/dL (6.0-8.3); Sodium 136 mmol/L (136-145)
[2020-02-18] MEDS ORDERED: Sodium Chloride 0.9% 100 ML ONE (12:51)
[2020-02-18] MEDS ORDERED: metroNIDAZOLE 500 MG/100 ML BAG ONE (12:52)
[2020-02-18] MEDS ORDERED: Ketorolac Tromethamine 30 MG/ML VIAL ONE (12:55)
[2020-02-18] MEDS ORDERED: Ondansetron PF 4 MG/2 ML Vial ONE (12:55)
--- NOTE | 2020-02-18 13:05 | CT ---
CT LUMBAR SPINE WITH CONTRAST: DATE: 02/18/2020. FINDINGS: Spiral CT of the lumbar spine was done for evaluation of this patient with lower extremity weakness a nd pain. There is concern for possible abscess as he also has hydradenitis suppurativa. The scan co mike from the mid T12 level through the upper sacrum after injection of IV contrast. All bones appear normal. There is no sign of fracture, dislocation, or any area of bony destruction to suggest osteomyelitis. The end plates all appear normal. There was no sign of protruding disks, foraminal stenosis, or central stenosis. The spinal canal is normal in size throughout. I do not se e any sign of an epidural abscess or paraspinous abscess. The visualized portions of the psoas muscl es appear normal. The visualized portions of the SI joints appear normal. IMPRESSION: No significant findings at this time. Findings discussed with Dr. Moon at 1252 on 02/18/2020. CODE CR POS: HOME
[2020-02-18] MEDS ORDERED: Morphine 2 MG/ML VIAL ONE (14:12)
[2020-02-18 15:33] LABS: Lactic Acid 1.2 mmol/L (0.5-2.2)
[2020-02-18] MEDS ORDERED: Acetaminophen 325 MG TAB PO PRN (16:45)
[2020-02-18] MEDS ORDERED: Ondansetron PF 4 MG/2 ML Vial IVP PRN (16:45)
[2020-02-18] MEDS ORDERED: HYDROcodone/Acetaminophen 5/325 mg Tablet PO PRN ×2 (16:45)
[2020-02-18] MEDS ORDERED: Ondansetron ODT 4 MG TAB SL PRN (16:45)
[2020-02-18] MEDS ORDERED: KETOROLAC TROMETHAMINE 10 MG PO PRN (17:27)
[2020-02-18] MEDS ORDERED: FLU VACC QS2020-21(6MOS UP)/PF 60 MCG/0.5 ML SYRINGE IM ONE (18:00)
[2020-02-18] MEDS: Piperacillin/Tazobactam 4.5 GM in Sodium Chloride 0.9% 100 ML IVPB SCH (18:35)
--- NOTE | 2020-02-18 19:06 | HP ---
CHIEF COMPLAINT: Intractable pain. HISTORY OF PRESENT ILLNESS: This is a 29-year-old male with underlying history of diffuse hidradenitis suppurativa, who presented to the [facility] Emergency Department earlier today with complaints of intractable lower back pain in conjunction with worsening skin lesions. The patient did not identify any trauma to cause his back pain. Due to his increasing pain, he has limited mobility and his intake has been poor as well. There was concern secondary to his skin condition that he could have developed an epidural abscess based on the location of his pain. However, this was effectively ruled out per CT scan of the lumbar spine. Workup in the emergency department revealed significant leukocytosis with white blood cell count of 27.7 and a left shift. He was provided IV vancomycin, metronidazole, Zosyn, normal saline, morphine and Zofran in the emergency department after blood cultures had been obtained. Due to the patient's intractable pain in conjunction with his underlying skin disorder and need for further IV antibiotics, he has been admitted. Of note, the patient has been admitted for exacerbations of this sort at [facility] in [place] a couple times within the last few months. Upon his most recent admission approximately 1 month ago, there was discussion with Dr. Quinn from Dermatology at [facility], who recommended for the patient to start clindamycin and rifampin for 3 months along with topical clindamycin and benzoyl peroxide washes with Hibiclens. Upon review of this with the patient, he has not been taking the rifampin as he states this made him feel worse. He also did not follow up with Dermatology as he states he could not make it to [place] at the time of his appointment. There was discussion in regard to the patient need to restart Humira, but as stated, he was not able to follow up with Dermatology. PAST MEDICAL HISTORY: Includes hidradenitis suppurativa, bipolar disorder, gastroesophageal reflux disease. PAST SURGICAL HISTORY: Includes multiple I and D of abscesses. SOCIAL HISTORY: No ETOH or illicit drug use. He does occasionally smoke cigarettes. ALLERGIES: NO KNOWN DRUG ALLERGIES. FAMILY HISTORY: Noncontributory. REVIEW OF SYSTEMS: GENERAL: The patient complains of fatigue. He denies fever. EARS, NOSE, AND THROAT: Denies sore throat, nasal drainage or congestion. CARDIOVASCULAR: Denies chest pain or palpitations. RESPIRATORY: Denies shortness of breath or cough. GASTRO: Denies abdominal pain, nausea, vomiting, diarrhea, or constipation. GENITOURINARY: Denies dysuria. MUSCULOSKELETAL: Complains of joint pains. DERM: Complains of skin lesions. NEURO: Denies headache. LABORATORY DATA: White blood cell count of 27.7, hemoglobin 11.1, hematocrit 35.6, platelets 693. Sodium 136, potassium 3.7, BUN 11, creatinine 0.97, GFR is greater than 90, glucose 107. Lactic acid initially 2.1, recheck is 1.2. AST is 35, ALT 35, alkaline phosphatase is 394. IMAGING STUDIES: Lumbar spine CT scan shows no significant findings at this time. PHYSICAL EXAMINATION: VITAL SIGNS: Temperature is 97.7, pulse is 88, respiratory rate is 18, oxygen 99% on room air, blood pressure is 103/56. GENERAL: The patient is alert and oriented, in mild discomfort at present. HEAD, EYES, EARS, NOSE AND THROAT: Head is normocephalic and atraumatic. Pupils are equal, round, and reactive to light. Extraocular movements are intact bilaterally. Clear sclerae and dry mucous membranes. NECK: Supple without lymphadenopathy. HEART: Normal S1, S2. No murmurs, rubs, or gallops. Regular rate and rhythm. LUNGS: Clear to auscultation bilaterally without wheezes, rales, or rhonchi. ABDOMEN: Soft and nontender to palpation. Normal bowel sounds. EXTREMITIES: No clubbing, cyanosis, or edema. SKIN: He has diffuse areas of raised pustular skin lesions to the face, chest, axilla, and lower extremities. NEUROLOGIC: Nonfocal with cranial nerves II through XII grossly intact. ASSESSMENT AND PLAN: 1. Hidradenitis suppurativa. The patient appears to be having an exacerbation of this chronic condition. He was unable to follow up with Dermatology as advised and has been unable to comply with the advised 3-month medication regimen of clindamycin and rifampin. He has been started empirically on IV antibiotic with vancomycin and Zosyn, which will be continued with vancomycin to be titrated by the Pharmacy. We will repeat the patient's CBC tomorrow morning. 2. Dehydration. The patient has been provided normal saline intravenous fluids. This will be continued overnight and re-evaluated in the morning. 3. Intractable pain. He will be provided pain medication to be taken as needed. 4. Bipolar disorder. Abilify will be continued. 5. Elevated alkaline phosphatase. GGT will be checked with morning labs. He did have an abdominal ultrasound on 01/22/2020, which showed a contracted gallbladder that may have been related to a nonfasting state. He also had a 01/20/2020 CT scan of the chest, abdomen and pelvis, which showed very extensive skin thickening as above, which shows some progression from prior study. No evidence for abnormal fluid collection. 6. Prophylaxis. We will provide proton pump inhibitor for GI prophylaxis, Lovenox for DVT prophylaxis, and Florastor due to the patient being on multiple antibiotics. 7. Code status is full. 8. Disposition: We will plan for the patient to discharge home once his pain is better controlled and his skin condition is improved in regard to pain and lab evaluation. Job ID: [id number] MTDD
[2020-02-18] MEDS: Rifampin 150 MG CAP PO SCH ×2 (21:06→21:12)
[2020-02-18] MEDS: Clindamycin 150 MG CAP PO SCH (21:06)
[2020-02-18] MEDS: HYDROcodone/Acetaminophen 5/325 mg Tablet PO PRN (21:07)
[2020-02-18] MEDS: metroNIDAZOLE 250 MG TAB PO SCH (21:07)
[2020-02-18] MEDS: CLINDAMYCIN PHOSPHATE TOP SCH (21:12)
[2020-02-19] MEDS: HYDROcodone/Acetaminophen 5/325 mg Tablet PO PRN ×2 (01:05→06:37)
[2020-02-19] MEDS: Piperacillin/Tazobactam 4.5 GM in Sodium Chloride 0.9% 100 ML IVPB SCH ×4 (01:07→18:07)
[2020-02-19] MEDS: Vancomycin HCl 1 GM in Sodium Chloride 0.9% 250 ML 250 ML IVPB SCH ×3 (02:00→20:05)
[2020-02-19] MEDS ORDERED: Vancomycin HCl 500 MG in Sodium Chloride 0.9% 100 ML IVPB SCH (03:00)
[2020-02-19 05:31] LABS: Anion Gap 13 mmol/L (10-20)
[2020-02-19 06:03] LABS: #Basophils 0.1 thou/uL (0.0-0.2); #Eosinphils 0.7 thou/uL (0.0-0.7); #Lymphocytes 2.9 thou/uL (1.20-3.40); #Monocytes 0.9 thou/uL (0.11-0.59); #Neutrophils 16.1 thou/uL (1.40-6.50); %Basophils 0.5 % (0.0-1.0); %Eosinophils 3.2 % (0.0-10.0); %Lymphocytes 14.2 % (21.0-51.0); %Monocytes 4.5 % (0.0-10.0); %Neutrophils 77.7 % (42.0-75.0); Hemoglobin 9.6 g/dL (14.0-18.0); Mean Corpuscular HGB CONC 31.4 g/dL (32.0-36.0); Mean Corpuscular Hemoglobin 25.3 pg (27.0-31.0); Mean Corpuscular Volume 80.6 fL (78.0-98.0); Mean Platelet Volume 5.2 fL (7.4-10.4); Platelet Count 546 thou/uL (130-400); RBC Distribution Width 14.9 % (11.5-14.5); Red Blood Cell (RBC) Count 3.77 mill/uL (4.70-6.10); White Blood Cell (WBC) Count 20.7 thou/uL (4.8-10.8)
[2020-02-19 06:12] LABS: ALT (SGPT) 27 U/L (8-55); AST (SGOT) 30 U/L (5-34); Albumin 2.6 g/dL (3.5-5.0); Alkaline Phosphatase 316 U/L (40-110); BUN (Urea Nitrogen) 12 mg/dL (8.9-20.6); Bilirubin, Total 0.3 mg/dL (0.2-1.2); Calc. Creatinine Clearance 126 mL/min (70-130); Calcium 8.5 mg/dL (7.8-10.44); Chloride 102 mmol/L (98-107); Globulin 5.9 g/dL (2.4-3.5); Protein, Total 8.5 g/dL (6.0-8.3); Sodium 136 mmol/L (136-145)
[2020-02-19 06:13] LABS: Carbon Dioxide 40 mmol/L (22-29)
[2020-02-19 06:14] LABS: Glucose 76 mg/dL (70-105)
[2020-02-19] MEDS ORDERED: HYDROcodone/Acetaminophen 5/325 mg Tablet PO PRN (07:28)
[2020-02-19] MEDS: Sodium Chloride 0.9% 1,000 ML IV SCH ×2 (07:49→21:18)
[2020-02-19] MEDS ORDERED: Morphine 2 MG/ML VIAL SLOW IVP SCH (08:00)
[2020-02-19] MEDS ORDERED: Morphine 2 MG/ML VIAL ONE (08:54)
[2020-02-19] MEDS: Aripiprazole 10 MG TAB PO SCH (09:04)
[2020-02-19] MEDS: metroNIDAZOLE 250 MG TAB PO SCH ×2 (09:04→20:04)
[2020-02-19] MEDS: Enoxaparin Sodium 40 MG/0.4 ML SYRINGE SC SCH (09:05)
[2020-02-19] MEDS: Saccharomyces boulardii 250 MG CAP PO SCH (09:05)
[2020-02-19] MEDS: Clindamycin 150 MG CAP PO SCH ×2 (09:05→20:04)
[2020-02-19] MEDS: Rifampin 150 MG CAP PO SCH ×2 (09:06→22:00)
[2020-02-19] MEDS: CLINDAMYCIN PHOSPHATE TOP SCH (09:50)
[2020-02-19 11:24] LABS: Gamma GT (GGT) 144 U/L (12-64)
[2020-02-19] MEDS: HYDROcodone/Acetaminophen 10/325 mg Tablet PO PRN ×2 (14:12→18:04)
[2020-02-19] MEDS: Ibuprofen 800 MG TAB PO PRN (20:04)
[2020-02-20 01:26] LABS: Vancomycin, Trough 18.5 ug/mL
[2020-02-20] MEDS: HYDROcodone/Acetaminophen 10/325 mg Tablet PO PRN ×3 (01:38→13:59)
[2020-02-20] MEDS: Piperacillin/Tazobactam 4.5 GM in Sodium Chloride 0.9% 100 ML IVPB SCH ×4 (01:38→18:26)
[2020-02-20] MEDS: Sodium Chloride 0.9% 1,000 ML IV SCH (02:06)
[2020-02-20] MEDS: Vancomycin HCl 1 GM in Sodium Chloride 0.9% 250 ML 250 ML IVPB SCH ×3 (02:06→20:55)
[2020-02-20 05:40] LABS: ALT (SGPT) 18 U/L (8-55); AST (SGOT) 19 U/L (5-34); Albumin 2.4 g/dL (3.5-5.0); Alkaline Phosphatase 251 U/L (40-110); Anion Gap 15 mmol/L (10-20); BUN (Urea Nitrogen) 10 mg/dL (8.9-20.6); Bilirubin, Total 0.4 mg/dL (0.2-1.2); Calc. Creatinine Clearance 128 mL/min (70-130); Calcium 8.6 mg/dL (7.8-10.44); Carbon Dioxide 23 mmol/L (22-29); Chloride 103 mmol/L (98-107); Globulin 6.1 g/dL (2.4-3.5); Glucose 77 mg/dL (70-105); Potassium 4.1 mmol/L (3.5-5.1); Protein, Total 8.5 g/dL (6.0-8.3); Sodium 137 mmol/L (136-145)
[2020-02-20 05:56] LABS: Hemoglobin 8.5 g/dL (14.0-18.0); Mean Corpuscular HGB CONC 31.2 g/dL (32.0-36.0); Mean Corpuscular Volume 80.2 fL (78.0-98.0); Mean Platelet Volume 5.3 fL (7.4-10.4); Platelet Count 567 thou/uL (130-400); RBC Distribution Width 15.1 % (11.5-14.5); White Blood Cell (WBC) Count 21.3 thou/uL (4.8-10.8)
[2020-02-20 06:01] LABS: Band 2 % (5-11); Eosinophils 3 % (0-10); Hypersemented Neutrophil SLIGHT; Lymphocytes 18 % (21-51); MDiff Complete? YES; Neutrophil 77 % (42-75); Platelet Morphology Comment Appears Increased
[2020-02-20] MEDS ORDERED: Sodium Chloride 0.9% 1,000 ML IV SCH (07:16)
[2020-02-20] MEDS: Saccharomyces boulardii 250 MG CAP PO SCH (09:22)
[2020-02-20] MEDS: metroNIDAZOLE 250 MG TAB PO SCH (09:22)
[2020-02-20] MEDS: Rifampin 150 MG CAP PO SCH (09:22)
[2020-02-20] MEDS: Aripiprazole 10 MG TAB PO SCH (09:22)
[2020-02-20] MEDS: Enoxaparin Sodium 40 MG/0.4 ML SYRINGE SC SCH (09:24)
[2020-02-20] MEDS: Clindamycin 150 MG CAP PO SCH ×2 (09:24→20:56)
[2020-02-20] MEDS: Ibuprofen 800 MG TAB PO PRN (12:56)
[2020-02-21] MEDS: Piperacillin/Tazobactam 4.5 GM in Sodium Chloride 0.9% 100 ML IVPB SCH ×2 (01:22→06:06)
[2020-02-21 01:25] LABS: Vancomycin, Trough 18.6 ug/mL
[2020-02-21] MEDS: HYDROcodone/Acetaminophen 10/325 mg Tablet PO PRN ×3 (01:34→11:59)
[2020-02-21] MEDS: Vancomycin HCl 1 GM in Sodium Chloride 0.9% 250 ML 250 ML IVPB SCH (02:09)
[2020-02-21 07:02] VITALS: BP 105/60; TEMP 98.6
[2020-02-21] MEDS: Clindamycin 150 MG CAP PO SCH (08:24)
[2020-02-21] MEDS: Saccharomyces boulardii 250 MG CAP PO SCH (08:25)
[2020-02-21] MEDS: Aripiprazole 10 MG TAB PO SCH (08:25)
[2020-02-21] MEDS: Enoxaparin Sodium 40 MG/0.4 ML SYRINGE SC SCH (08:29)
--- NOTE | 2020-02-21 08:55 | DIS ---
DATE OF ADMISSION: 02/18/2020 DATE OF DISCHARGE: 02/21/2020 ADMISSION DIAGNOSES: 1. Hidradenitis suppurativa with skin infection. 2. Dehydration. 3. Intractable pain. 4. Bipolar disorder. 5. Elevated alkaline phosphatase. PROCEDURES: 02/18/2020, CT scan of the lumbar spine showed no significant findings at this time. HOSPITAL COURSE: This is a 29-year-old male with underlying history of hidradenitis suppurativa, for which he has required several admissions within the last few months secondary to intractable pain and worsening of his skin lesions. This admission was prompted secondary to acute pain of the patient's low back, for which there was initial concern of an epidural abscess; however, CT scan effectively ruled this out. The patient does have a chronic leukocytosis, however displayed an initial white blood cell count somewhat above his baseline at a level of 27.7. He had poor intake and was notably dehydrated as well. Secondary to his intractable pain, infected skin lesion, and dehydrated state, he was admitted for IV antibiotics, normal saline intravenous fluids, and pain control. During the patient's most recent admission at [facility] in [place], there was a contact made with Dermatology at [facility], who advised for the patient to be on a 3-month course of clindamycin and rifampin along with use of topical clindamycin, benzoyl peroxide washes, and Hibiclens. The patient has been noncompliant with use of oral rifampin secondary to intolerance with specific complaints of chest pain. Discussion was had with Pharmacy here, who advises that chest pain is a potential complication of taking rifampin and a potential alternative may be dapsone; discussion was had with the patient in regard to initiation of dapsone to which he is agreeable. The patient had been unable to follow up with Dermatology at [facility] after his admission in [place] a month ago and has been strongly encouraged to do so, status post this admission as there has been prior discussion for the patient to initiate Humira for better control of his underlying condition. The patient states he has the contact information for Dr. Nathalia Grimes, Dermatology at [facility] in [place] to follow up as advised. Secondary finding during the patient's stay was an elevated alkaline phosphatase level with followup GGT also being elevated. His alkaline phosphatase level was trended during his stay and trended down from 394 to 316 to 251. His liver enzymes have been normal. It should be noted during his admission in [place] a month ago an abdominal ultrasound was performed showing a contracted gallbladder at that time. Secondary to this, it may be suitable for the patient to follow up with Gastroenterology and/or General Surgery as an outpatient. The patient's white blood cell count did trend down during his stay closer to his baseline level of around 20. He is afebrile with improved p.o. intake and negative blood cultures and is now appropriate for discharge home. DISPOSITION: The patient may follow up with myself in the clinic in 1 week. He has been strongly encouraged to follow up with Dermatology, Dr. Nathalia Grimes at [address] [facility] [address] in [facility], may further follow up as advised per discharge summary with Gastroenterology in regard to his elevated alkaline phosphatase and GGT with recent imaging findings showing signs of a contracted gallbladder. DISCHARGE MEDICATIONS: 1. Clindamycin phosphate 1% lotion applied topically b.i.d. 2. Clindamycin 300 mg p.o. b.i.d. 3. Abilify 15 mg daily. 4. Toradol 10 mg q.6 hours p.r.n. 5. [place] 10/325 one tablet q.6 hours p.r.n. 6. Pantoprazole 40 mg daily. 7. One new medicine being dapsone 50 mg daily. Total time spent in preparation of discharge of this patient greater than 30 minutes. Job ID: [id number] MTDD
== END 2020-02-21 12:55 | disposition home or self-care (01) | DRG 607 ==
LOC: BURERS 11:47 → BURMED 13:55
PROVIDERS: ADMIT Family Medicine; ATTEND Family Medicine
DX: L73.2 Hidradenitis suppurativa (principal); I10 Essential (primary) hypertension; F31.9 Bipolar disorder, unspecified; F20.9 Schizophrenia, unspecified; F90.9 Attention-deficit hyperactivity disorder, unspecified type; F17.210 Nicotine dependence, cigarettes, uncomplicated; D50.9 Iron deficiency anemia, unspecified; E86.0 Dehydration; E83.39 Other disorders of phosphorus metabolism; D72.829 Elevated white blood cell count, unspecified; Z88.8 Allergy status to other drugs, medicaments and biological substances
CPT/HCPCS: 36415; 72132; 80053; 80202; 82977; 83605; 85025; 86038; 86225; 87040; 96365; 96367; 96375; J1650; J1885; J2270; J2405; J2543; J3010; J3370; J3490; J7050; Q9967

== ENCOUNTER 2020-05-08 19:08 | Emergency (ER) | payer OTHER ==
[2020-05-08] MEDS ORDERED: Aspirin Chewable 81 MG TAB ONE (19:46)
[2020-05-08] MEDS ORDERED: Fentanyl 100 MCG/2 ML VIAL ONE ×2 (19:46→20:37)
[2020-05-08] MEDS ORDERED: Dexamethasone 10 MG/ML VIAL ONE (19:46)
[2020-05-08 20:24] LABS: ALT (SGPT) 13 U/L (8-55); AST (SGOT) 18 U/L (5-34); Albumin 3.3 g/dL (3.5-5.0); Alkaline Phosphatase 153 U/L (40-110); Anion Gap 17 mmol/L (10-20); BUN (Urea Nitrogen) 12 mg/dL (8.9-20.6); Bilirubin, Total Less than 0.2 mg/dL (0.2-1.2); Calc. Creatinine Clearance 0 mL/min (70-130); Calcium 9.2 mg/dL (7.8-10.44); Carbon Dioxide 27 mmol/L (22-29); Chloride 96 mmol/L (98-107); Globulin 6.2 g/dL (2.4-3.5); Glucose 135 mg/dL (70-105); Lipase 33 U/L (8-78); Potassium 3.9 mmol/L (3.5-5.1); Protein, Total 9.5 g/dL (6.0-8.3); Sodium 136 mmol/L (136-145)
[2020-05-08] MEDS ORDERED: Piperacillin/Tazobactam 4.5 GM VIAL ONE (20:37)
[2020-05-08 20:52] LABS: Hemoglobin 13.5 g/dL (14.0-18.0); Mean Corpuscular HGB CONC 31.1 g/dL (32.0-36.0); Mean Corpuscular Hemoglobin 23.9 pg (27.0-31.0); Mean Corpuscular Volume 76.8 fL (78.0-98.0); Mean Platelet Volume 5.6 fL (7.4-10.4); Platelet Count 447 thou/uL (130-400); RBC Distribution Width 15.9 % (11.5-14.5); Red Blood Cell (RBC) Count 5.66 mill/uL (4.70-6.10); White Blood Cell (WBC) Count 22.2 thou/uL (4.8-10.8)
[2020-05-08 21:11] LABS: Anisocytosis SLIGHT = 6-15 cells (100X) (0-5/hpf); Band 1 % (5-11); Eosinophils 1 % (0-10); Lymphocytes 21 % (21-51); MDiff Complete? YES; Microcytosis SLIGHT = 6-15 cells (100X) (0-5/hpf); Monocytes 5 % (0-10); Neutrophil 72 % (42-75); Platelet Morphology Comment Appears Increased; Small Platelets SLIGHT
== END 2020-05-08 23:20 | disposition short-term general hospital (02) ==
LOC: BURERS 19:08
DX: M86.8X8 Other osteomyelitis, other site (principal); I10 Essential (primary) hypertension; F17.210 Nicotine dependence, cigarettes, uncomplicated
CPT/HCPCS: 71045; 71260; 80053; 83605; 83690; 84443; 84484; 85025; 87040; 93005; 94760; 96365; 96366; 96375; J1100; J2543; J3010; J3370

== ENCOUNTER 2020-06-14 22:14 | Inpatient (IN) | payer OTHER ==
[2020-06-14 23:09] LABS: Mean Corpuscular HGB CONC 32.5 g/dL (32.0-36.0); Mean Corpuscular Hemoglobin 24.7 pg (27.0-31.0); Mean Corpuscular Volume 75.9 fL (78.0-98.0); Mean Platelet Volume 5.3 fL (7.4-10.4); Platelet Count 474 thou/uL (130-400); RBC Distribution Width 16.3 % (11.5-14.5); Red Blood Cell (RBC) Count 5.68 mill/uL (4.70-6.10); White Blood Cell (WBC) Count 26.4 thou/uL (4.8-10.8)
[2020-06-14 23:28] LABS: Anisocytosis SLIGHT = 6-15 cells (100X) (0-5/hpf); Eosinophils 1 % (0-10); Lymphocytes 18 % (21-51); MDiff Complete? YES; Monocytes 8 % (0-10); Neutrophil 68 % (42-75); Platelet Morphology Comment Appears Increased; Reactive Lymphocytes 5 % (0-10)
[2020-06-14 23:29] LABS: ALT (SGPT) 15 U/L (8-55); AST (SGOT) 16 U/L (5-34); Albumin 3.3 g/dL (3.5-5.0); Alkaline Phosphatase 169 U/L (40-110); Anion Gap 17 mmol/L (10-20); BUN (Urea Nitrogen) 7 mg/dL (8.9-20.6); Bilirubin, Total 0.3 mg/dL (0.2-1.2); Calc. Creatinine Clearance 0 mL/min (70-130); Calcium 9.5 mg/dL (7.8-10.44); Carbon Dioxide 25 mmol/L (22-29); Chloride 99 mmol/L (98-107); Globulin 5.9 g/dL (2.4-3.5); Glucose 112 mg/dL (70-105); Protein, Total 9.2 g/dL (6.0-8.3); Sodium 137 mmol/L (136-145)
[2020-06-14] MEDS ORDERED: Morphine 4 MG/ML VIAL ONE (23:47)
[2020-06-14] MEDS ORDERED: Ondansetron PF 4 MG/2 ML Vial ONE (23:47)
[2020-06-15] MEDS ORDERED: Cefepime 2 GM VIAL ONE (01:30)
[2020-06-15] MEDS ORDERED: Sodium Chloride 0.9% 100 ML ONE (01:31)
[2020-06-15] MEDS ORDERED: HYDROcodone/Acetaminophen 10/325 mg Tablet ONE (01:53)
[2020-06-15 03:05] VITALS: BMI 20.2
[2020-06-15] MEDS ORDERED: Ondansetron ODT 4 MG TAB SL PRN (04:00)
[2020-06-15] MEDS ORDERED: Ondansetron PF 4 MG/2 ML Vial IVP PRN (04:00)
[2020-06-15] MEDS: Cefepime 2 GM in Sodium Chloride 0.9% 100 ML IVPB SCH ×2 (09:01→17:20)
[2020-06-15] MEDS: HYDROcodone/Acetaminophen 5/325 mg Tablet PO PRN ×2 (09:17→15:42)
[2020-06-15] MEDS: Vancomycin HCl 1 GM in Sodium Chloride 0.9% 250 ML 250 ML IVPB SCH (11:46)
[2020-06-16] MEDS: HYDROcodone/Acetaminophen 5/325 mg Tablet PO PRN ×2 (00:16→12:25)
[2020-06-16] MEDS: Vancomycin HCl 1 GM in Sodium Chloride 0.9% 250 ML 250 ML IVPB SCH ×2 (00:17→11:33)
[2020-06-16] MEDS: Cefepime 2 GM in Sodium Chloride 0.9% 100 ML IVPB SCH ×3 (01:51→17:41)
[2020-06-16 05:35] LABS: #Basophils 0.2 thou/uL (0.0-0.2); #Eosinphils 0.3 thou/uL (0.0-0.7); #Lymphocytes 3.7 thou/uL (1.20-3.40); #Neutrophils 17.8 thou/uL (1.40-6.50); %Basophils 0.7 % (0.0-1.0); %Eosinophils 1.4 % (0.0-10.0); %Lymphocytes 16.2 % (21.0-51.0); %Monocytes 4.2 % (0.0-10.0); %Neutrophils 77.5 % (42.0-75.0); Mean Corpuscular HGB CONC 31.2 g/dL (32.0-36.0); Mean Corpuscular Hemoglobin 24.2 pg (27.0-31.0); Mean Corpuscular Volume 77.5 fL (78.0-98.0); Mean Platelet Volume 5.5 fL (7.4-10.4); Platelet Count 433 thou/uL (130-400); RBC Distribution Width 16.7 % (11.5-14.5)
[2020-06-16 06:00] LABS: Anisocytosis SLIGHT = 6-15 cells (100X) (0-5/hpf); MDiff Complete? YES; Platelet Morphology Comment Appears Increased
[2020-06-16] MEDS ORDERED: ARIPIPRAZOLE 15 MG PO SCH (09:00)
[2020-06-16] MEDS: Aripiprazole 10 MG TAB PO SCH (09:26)
[2020-06-17] MEDS: Vancomycin HCl 1 GM in Sodium Chloride 0.9% 250 ML 250 ML IVPB SCH ×3 (00:37→20:19)
[2020-06-17] MEDS: Cefepime 2 GM in Sodium Chloride 0.9% 100 ML IVPB SCH ×3 (00:37→18:20)
[2020-06-17] MEDS: HYDROcodone/Acetaminophen 5/325 mg Tablet PO PRN ×2 (07:27→14:04)
[2020-06-17] MEDS: Aripiprazole 10 MG TAB PO SCH (07:27)
[2020-06-17 11:28] LABS: Vancomycin, Trough 6.4 ug/mL
[2020-06-17] MEDS ORDERED: Ibuprofen 800 MG TAB PO PRN (17:47)
[2020-06-18] MEDS: Cefepime 2 GM in Sodium Chloride 0.9% 100 ML IVPB SCH ×2 (02:48→11:15)
[2020-06-18] MEDS: HYDROcodone/Acetaminophen 5/325 mg Tablet PO PRN ×2 (02:51→09:33)
[2020-06-18] MEDS: Vancomycin HCl 1 GM in Sodium Chloride 0.9% 250 ML 250 ML IVPB SCH (03:20)
[2020-06-18 05:08] LABS: #Basophils 0.1 thou/uL (0.0-0.2); #Eosinphils 0.3 thou/uL (0.0-0.7); #Lymphocytes 3.5 thou/uL (1.20-3.40); #Neutrophils 18.6 thou/uL (1.40-6.50); %Basophils 0.5 % (0.0-1.0); %Eosinophils 1.3 % (0.0-10.0); %Lymphocytes 14.8 % (21.0-51.0); %Monocytes 4.3 % (0.0-10.0); %Neutrophils 79.2 % (42.0-75.0); Anisocytosis SLIGHT = 6-15 cells (100X) (0-5/hpf); Hemoglobin 13.1 g/dL (14.0-18.0); MDiff Complete? YES; Mean Corpuscular Volume 77.4 fL (78.0-98.0); Mean Platelet Volume 5.4 fL (7.4-10.4); Microcytosis SLIGHT = 6-15 cells (100X) (0-5/hpf); Platelet Count 487 thou/uL (130-400); Platelet Morphology Comment Appears Increased; RBC Distribution Width 16.6 % (11.5-14.5); Red Blood Cell (RBC) Count 5.49 mill/uL (4.70-6.10); Vacuoles SLIGHT; White Blood Cell (WBC) Count 23.5 thou/uL (4.8-10.8)
[2020-06-18 06:00] VITALS: BP 119/64; TEMP 97.9
[2020-06-18] MEDS: Aripiprazole 10 MG TAB PO SCH (09:33)
== END 2020-06-18 10:02 | disposition home or self-care (01) | DRG 603 ==
LOC: BURERS 22:14 → BURMED 06-15 02:55 → UNDOADMIN 06-15 02:55
PROVIDERS: ADMIT Family Medicine; ATTEND Family Medicine
DX: L02.214 Cutaneous abscess of groin (principal); L02.419 Cutaneous abscess of limb, unspecified; L73.2 Hidradenitis suppurativa; F20.9 Schizophrenia, unspecified; F31.9 Bipolar disorder, unspecified; F90.9 Attention-deficit hyperactivity disorder, unspecified type; I10 Essential (primary) hypertension
CPT/HCPCS: 36415; 71045; 80053; 80202; 83605; 85025; 87040; 96365; 96367; 96375; J0692; J2270; J2405; J3370; J3490; J7050

== ENCOUNTER 2020-08-07 12:57 | Emergency (ER) | payer OTHER ==
[2020-08-07] MEDS ORDERED: Ibuprofen 800 MG TAB ONE (13:31)
[2020-08-07] MEDS ORDERED: HYDROcodone/Acetaminophen 10/325 mg Tablet ONE (13:31)
== END 2020-08-07 13:36 | disposition home or self-care (01) ==
LOC: BURERS 12:57
DX: K03.81 Cracked tooth (principal); I10 Essential (primary) hypertension; F17.210 Nicotine dependence, cigarettes, uncomplicated
CPT/HCPCS: 99282

== ENCOUNTER 2020-09-02 16:16 | Emergency (ER) | payer OTHER ==
[2020-09-02] MEDS ORDERED: Ketorolac Tromethamine 30 MG/ML VIAL ONE (16:35)
[2020-09-02] MEDS ORDERED: Cyclobenzaprine 10 MG TAB ONE (16:35)
== END 2020-09-02 17:07 | disposition home or self-care (01) ==
LOC: BURERS 16:16
DX: M25.511 Pain in right shoulder (principal); M79.10 Myalgia, unspecified site; I10 Essential (primary) hypertension; F17.210 Nicotine dependence, cigarettes, uncomplicated; Z79.899 Other long term (current) drug therapy
CPT/HCPCS: 96372; J1885

== ENCOUNTER 2020-10-04 17:48 | Emergency (ER) | payer OTHER ==
[2020-10-04] MEDS ORDERED: Lidocaine 1% w/Epinephrine 1:100K 20 ML VIAL ONE (18:55)
== END 2020-10-04 19:20 | disposition home or self-care (01) ==
LOC: BURERS 17:48
DX: L02.12 Furuncle of neck (principal); I10 Essential (primary) hypertension; F17.210 Nicotine dependence, cigarettes, uncomplicated
CPT/HCPCS: 10060

== ENCOUNTER 2020-10-06 20:28 | Emergency (ER) | payer OTHER ==
[2020-10-06] MEDS ORDERED: Morphine 2 MG/ML VIAL ONE (20:52)
[2020-10-06] MEDS ORDERED: Morphine 4 MG/ML VIAL ONE ×2 (20:52→21:43)
[2020-10-06] MEDS ORDERED: predniSONE 20 MG TAB ONE (21:43)
== END 2020-10-06 22:20 | disposition home or self-care (01) ==
LOC: BURERS 20:28
DX: M79.10 Myalgia, unspecified site (principal); I10 Essential (primary) hypertension; F17.210 Nicotine dependence, cigarettes, uncomplicated
CPT/HCPCS: 96372; 99283; J2270; J7512

== ENCOUNTER 2020-10-11 19:53 | Inpatient (IN) | payer OTHER ==
[2020-10-11] MEDS ORDERED: Morphine 4 MG/ML VIAL ONE ×2 (20:08→21:03)
[2020-10-11] MEDS ORDERED: Ketorolac Tromethamine 30 MG/ML VIAL ONE (20:09)
[2020-10-11] MEDS ORDERED: Ondansetron PF 4 MG/2 ML Vial ONE (20:09)
[2020-10-11 20:16] LABS: Mean Corpuscular HGB CONC 32.3 g/dL (32.0-36.0); Mean Corpuscular Hemoglobin 25.6 pg (27.0-31.0); Mean Corpuscular Volume 79.2 fL (78.0-98.0); Mean Platelet Volume 5.7 fL (7.4-10.4); Platelet Count 403 thou/uL (130-400); RBC Distribution Width 15.9 % (11.5-14.5); Red Blood Cell (RBC) Count 5.47 mill/uL (4.70-6.10); White Blood Cell (WBC) Count 25.2 thou/uL (4.8-10.8)
[2020-10-11] MEDS ORDERED: Sodium Chloride 0.9% 100 ML ONE (20:18)
[2020-10-11] MEDS ORDERED: cefTRIAXone\\ROCEPHIN 2 GM VIAL ONE (20:18)
[2020-10-11 20:29] LABS: ALT (SGPT) 14 U/L (8-55); AST (SGOT) 15 U/L (5-34); Albumin 3.1 g/dL (3.5-5.0); Alkaline Phosphatase 133 U/L (40-110); Anion Gap 15 mmol/L (10-20); BUN (Urea Nitrogen) 7 mg/dL (8.9-20.6); Bilirubin, Total 0.2 mg/dL (0.2-1.2); Calc. Creatinine Clearance 0 mL/min (70-130); Carbon Dioxide 24 mmol/L (22-29); Chloride 102 mmol/L (98-107); Globulin 5.2 g/dL (2.4-3.5); Glucose 109 mg/dL (70-105); Potassium 3.4 mmol/L (3.5-5.1); Protein, Total 8.3 g/dL (6.0-8.3); Sodium 138 mmol/L (136-145)
[2020-10-11] MEDS ORDERED: metroNIDAZOLE 500 MG/100 ML BAG ONE (20:42)
[2020-10-11 20:43] LABS: Band 6 % (5-11); Lymphocytes 18 % (21-51); MDiff Complete? YES; Monocytes 3 % (0-10); Neutrophil 72 % (42-75); Platelet Morphology Comment Appears Increased; RBC Morphology Normal; Small Platelets SLIGHT
[2020-10-11] MEDS ORDERED: HYDROcodone/Acetaminophen 5/325 mg Tablet PO PRN (22:03)
[2020-10-11] MEDS ORDERED: Morphine 2 MG/ML VIAL SLOW IVP PRN (22:11)
[2020-10-11] MEDS ORDERED: Ondansetron ODT 4 MG TAB SL PRN (22:15)
[2020-10-11] MEDS ORDERED: Ondansetron PF 4 MG/2 ML Vial IVP PRN (22:15)
[2020-10-11 23:29] LABS: SARS-CoV-2 NAA Rapid Test Not Detected (NotDetected)
[2020-10-11] MEDS: Dextrose 5 %-0.45 % NaCl 1,000 ML IV SCH (23:33)
[2020-10-12 00:16] VITALS: BMI 20.6
[2020-10-12 00:30] LABS: Bilirubin Small (Negative); Blood, Urine Negative (Negative); Clarity Clear (Clear); Glucose, Urine (Dipstick) Negative (Negative); Ketone, Urine Negative (Negative); Leukocyte Negative (Negative); Nitrite Negative (Negative); Protein, Urine (Dipstick) 30 mg/dL (Neg-Trace)
[2020-10-12 00:32] LABS: Mucous/LPF 1+ LPF (<2+); RBC/HPF None Seen HPF (0-3); Squamous Epithelial None Seen HPF (0-3); WBC/HPF None Seen HPF (0-3)
[2020-10-12 00:33] LABS: Bacteria/HPF None Seen HPF (None Seen)
[2020-10-12] MEDS: Morphine 4 MG/ML VIAL SLOW IVP PRN (03:27)
[2020-10-12] MEDS: Dextrose 5 %-0.45 % NaCl 1,000 ML IV SCH (05:14)
[2020-10-12] MEDS: Vancomycin HCl 1 GM in Sodium Chloride 0.9% 250 ML 250 ML IVPB SCH ×3 (05:15→22:46)
[2020-10-12] MEDS ORDERED: HYDROcodone/Acetaminophen 10/325 mg Tablet PO PRN (08:16)
[2020-10-12] MEDS ORDERED: metroNIDAZOLE 500 MG in Premix Bag 1 BAG IVPB SCH (09:00)
[2020-10-12] MEDS: metroNIDAZOLE 250 MG TAB PO SCH ×3 (10:05→20:27)
[2020-10-12] MEDS: Aripiprazole 10 MG TAB PO SCH (10:08)
[2020-10-12] MEDS: HYDROcodone/Acetaminophen 5/325 mg Tablet PO PRN (14:49)
[2020-10-12] MEDS ORDERED: cefTRIAXone\\ROCEPHIN 1 GM in Sodium Chloride 0.9% 100 ML IVPB SCH (20:00)
[2020-10-12 21:32] LABS: Vancomycin, Trough 10.4 ug/mL
[2020-10-13] MEDS: HYDROcodone/Acetaminophen 5/325 mg Tablet PO PRN ×2 (05:25→15:56)
[2020-10-13] MEDS: Vancomycin HCl 1 GM in Sodium Chloride 0.9% 250 ML 250 ML IVPB SCH (05:26)
[2020-10-13] MEDS: Morphine 4 MG/ML VIAL SLOW IVP PRN (06:19)
[2020-10-13 06:33] LABS: Anion Gap 12 mmol/L (10-20); BUN (Urea Nitrogen) Less than 4 mg/dL (8.9-20.6); Calc. Creatinine Clearance 147 mL/min (70-130); Calcium 8.7 mg/dL (7.8-10.44); Carbon Dioxide 25 mmol/L (22-29); Chloride 104 mmol/L (98-107); Glucose 95 mg/dL (70-105); Sodium 137 mmol/L (136-145); Uric Acid 2.9 mg/dL (3.5-7.2)
[2020-10-13 06:34] LABS: #Basophils 0.1 thou/uL (0.0-0.2); #Eosinphils 0.1 thou/uL (0.0-0.7); #Lymphocytes 2.5 thou/uL (1.20-3.40); #Monocytes 0.9 thou/uL (0.11-0.59); #Neutrophils 24.9 thou/uL (1.40-6.50); %Basophils 0.3 % (0.0-1.0); %Eosinophils 0.3 % (0.0-10.0); %Lymphocytes 8.7 % (21.0-51.0); %Monocytes 3.2 % (0.0-10.0); %Neutrophils 87.5 % (42.0-75.0); Hemoglobin 13.6 g/dL (14.0-18.0); Mean Corpuscular HGB CONC 32.3 g/dL (32.0-36.0); Mean Corpuscular Hemoglobin 25.4 pg (27.0-31.0); Mean Corpuscular Volume 78.8 fL (78.0-98.0); Mean Platelet Volume 5.6 fL (7.4-10.4); Platelet Count 317 thou/uL (130-400); Red Blood Cell (RBC) Count 5.34 mill/uL (4.70-6.10); White Blood Cell (WBC) Count 28.4 thou/uL (4.8-10.8)
[2020-10-13] MEDS: Aripiprazole 10 MG TAB PO SCH (08:45)
[2020-10-13 17:16] VITALS: BP 125/75; TEMP 98.8
== END 2020-10-13 16:20 | disposition home or self-care (01) | DRG 607 ==
LOC: BURERS 19:53 → BURMED 20:40
PROVIDERS: ADMIT Family Medicine; ATTEND Family Medicine
DX: L73.2 Hidradenitis suppurativa (principal); I10 Essential (primary) hypertension; L02.419 Cutaneous abscess of limb, unspecified; F31.9 Bipolar disorder, unspecified; F17.210 Nicotine dependence, cigarettes, uncomplicated; Z88.8 Allergy status to other drugs, medicaments and biological substances; G89.29 Other chronic pain; F20.9 Schizophrenia, unspecified
CPT/HCPCS: 36415; 80048; 80053; 80202; 81001; 83605; 84550; 85025; 87040; 87070; 87205; 96365; 96367; 96375; 96376; J0696; J1885; J2270; J2405; J3370; J3490; J7042; J7050; U0002

== ENCOUNTER 2020-10-19 12:12 | Emergency (ER) | payer OTHER ==
[2020-10-19 13:23] LABS: Hemoglobin 13.6 g/dL (14.0-18.0); Mean Corpuscular HGB CONC 30.6 g/dL (32.0-36.0); Mean Corpuscular Hemoglobin 24.6 pg (27.0-31.0); Mean Corpuscular Volume 80.5 fL (78.0-98.0); Mean Platelet Volume 5.6 fL (7.4-10.4); Platelet Count 488 thou/uL (130-400); Red Blood Cell (RBC) Count 5.52 mill/uL (4.70-6.10); White Blood Cell (WBC) Count 30.4 thou/uL (4.8-10.8)
[2020-10-19] MEDS ORDERED: Morphine 2 MG/ML VIAL ONE ×2 (13:33→14:34)
[2020-10-19 13:36] LABS: ALT (SGPT) 13 U/L (8-55); AST (SGOT) 15 U/L (5-34); Albumin 3.3 g/dL (3.5-5.0); Alkaline Phosphatase 172 U/L (40-110); Anion Gap 19 mmol/L (10-20); BUN (Urea Nitrogen) 6 mg/dL (8.9-20.6); Bilirubin, Total 0.3 mg/dL (0.2-1.2); Calc. Creatinine Clearance 0 mL/min (70-130); Calcium 9.8 mg/dL (7.8-10.44); Carbon Dioxide 21 mmol/L (22-29); Chloride 100 mmol/L (98-107); Globulin 6.2 g/dL (2.4-3.5); Glucose 124 mg/dL (70-105); Potassium 4.1 mmol/L (3.5-5.1); Protein, Total 9.5 g/dL (6.0-8.3); Sodium 136 mmol/L (136-145)
[2020-10-19 14:23] LABS: Band 2 % (5-11); Eosinophils 1 % (0-10); Hypersemented Neutrophil SLIGHT; Lymphocytes 18 % (21-51); MDiff Complete? YES; Monocytes 6 % (0-10); Neutrophil 72 % (42-75); Toxic Granulation SLIGHT
== END 2020-10-19 15:20 | disposition home or self-care (01) ==
LOC: BURERS 12:12
DX: L73.2 Hidradenitis suppurativa (principal); R00.0 Tachycardia, unspecified; I10 Essential (primary) hypertension; F17.210 Nicotine dependence, cigarettes, uncomplicated
CPT/HCPCS: 36415; 80053; 83605; 85025; 87040; 99283; J2270; J3370

== ENCOUNTER 2021-01-31 19:10 | Emergency (ER) | payer OTHER ==
[2021-01-31] MEDS ORDERED: Sodium Chloride 0.9% 100 ML ONE (19:44)
[2021-01-31] MEDS ORDERED: Ketorolac Tromethamine 30 MG/ML VIAL ONE (19:44)
[2021-01-31] MEDS ORDERED: Piperacillin/Tazobactam 4.5 GM VIAL ONE (19:44)
[2021-01-31] MEDS ORDERED: Fentanyl 100 MCG/2 ML VIAL ONE ×2 (19:44→21:10)
[2021-01-31 20:04] LABS: ALT (SGPT) 11 U/L (8-55); AST (SGOT) 13 U/L (5-34); Albumin 3.6 g/dL (3.5-5.0); Alkaline Phosphatase 116 U/L (40-110); Anion Gap 16 mmol/L (10-20); BUN (Urea Nitrogen) 5 mg/dL (8.9-20.6); Bilirubin, Total 0.4 mg/dL (0.2-1.2); Calc. Creatinine Clearance 0 mL/min (70-130); Calcium 10.1 mg/dL (7.8-10.44); Carbon Dioxide 23 mmol/L (22-29); Chloride 102 mmol/L (98-107); Globulin 5.4 g/dL (2.4-3.5); Glucose 120 mg/dL (70-105); Lipase 17 U/L (8-78); Potassium 3.8 mmol/L (3.5-5.1); Sodium 137 mmol/L (136-145)
[2021-01-31 20:12] LABS: Band 5 % (5-11); Eosinophils 3 % (0-10); Hemoglobin 14.6 g/dL (14.0-18.0); Lymphocytes 16 % (21-51); MDiff Complete? YES; Mean Corpuscular HGB CONC 31.4 g/dL (32.0-36.0); Mean Corpuscular Hemoglobin 25.2 pg (27.0-31.0); Mean Corpuscular Volume 80.1 fL (78.0-98.0); Mean Platelet Volume 5.6 fL (7.4-10.4); Monocytes 5 % (0-10); Neutrophil 63 % (42-75); Platelet Count 420 thou/uL (130-400); RBC Distribution Width 15.5 % (11.5-14.5); Reactive Lymphocytes 7 % (0-10); Red Blood Cell (RBC) Count 5.79 mill/uL (4.70-6.10); Toxic Granulation SLIGHT; Vacuoles SLIGHT; White Blood Cell (WBC) Count 24.1 thou/uL (4.8-10.8)
[2021-01-31] MEDS ORDERED: methylPREDNISolone Sod Succ/PF 125 MG/2 ML VIAL ONE (20:42)
[2021-01-31 22:39] LABS: SARS-CoV-2 NAA Rapid Test Not Detected (NotDetected)
== END 2021-02-01 00:27 | disposition short-term general hospital (02) ==
LOC: BURERS 19:10
DX: A41.9 Sepsis, unspecified organism (principal); L73.2 Hidradenitis suppurativa; Z20.822 Contact with and (suspected) exposure to COVID-19; I10 Essential (primary) hypertension; F17.210 Nicotine dependence, cigarettes, uncomplicated
CPT/HCPCS: 36415; 71260; 80053; 83605; 83690; 84484; 85025; 87040; 93005; 94760; 96365; 96375; 96376; J1885; J2543; J2930; J3010; J3370; J3490; U0002

== ENCOUNTER 2021-02-19 19:03 | Emergency (ER) | payer OTHER ==
[2021-02-19] MEDS ORDERED: Morphine 10 MG/ML VIAL ONE (19:45)
[2021-02-19] MEDS ORDERED: predniSONE 20 MG TAB ONE (19:45)
== END 2021-02-19 20:38 | disposition home or self-care (01) ==
LOC: BURERS 19:03
DX: L73.2 Hidradenitis suppurativa (principal); I10 Essential (primary) hypertension; F17.210 Nicotine dependence, cigarettes, uncomplicated
CPT/HCPCS: 96372; 99283; J2270; J7512

== ENCOUNTER 2021-02-23 19:35 | Emergency (ER) | payer OTHER ==
[2021-02-23] MEDS ORDERED: predniSONE 20 MG TAB ONE (20:20)
[2021-02-23] MEDS ORDERED: Morphine 10 MG/ML VIAL ONE (20:20)
== END 2021-02-23 21:49 | disposition home or self-care (01) ==
LOC: BURERS 19:35
DX: L73.2 Hidradenitis suppurativa (principal); I10 Essential (primary) hypertension; F17.210 Nicotine dependence, cigarettes, uncomplicated
CPT/HCPCS: 96372; 99283; J2270; J7512

== ENCOUNTER 2021-03-07 09:06 | Emergency (ER) | payer OTHER ==
[2021-03-07] MEDS ORDERED: predniSONE 20 MG TAB ONE (09:29)
== END 2021-03-07 09:37 | disposition home or self-care (01) ==
LOC: BURERS 09:06
DX: L73.2 Hidradenitis suppurativa (principal); I10 Essential (primary) hypertension; F17.210 Nicotine dependence, cigarettes, uncomplicated; Z79.52 Long term (current) use of systemic steroids
CPT/HCPCS: 99282; J7512

== ENCOUNTER 2021-05-10 13:44 | Emergency (ER) | payer OTHER ==
[2021-05-10] MEDS ORDERED: Ketorolac Tromethamine 60 MG/2 ML VIAL ONE (14:06)
== END 2021-05-10 14:33 | disposition home or self-care (01) ==
LOC: BURERS 13:44
DX: K04.7 Periapical abscess without sinus (principal); I10 Essential (primary) hypertension; F17.210 Nicotine dependence, cigarettes, uncomplicated
CPT/HCPCS: 96372; 99282; J1885

== ENCOUNTER 2021-06-11 17:45 | Emergency (ER) | payer OTHER ==
[2021-06-11] MEDS ORDERED: Morphine 10 MG/ML VIAL ONE (18:09)
[2021-06-11] MEDS ORDERED: Ondansetron ODT 4 MG TAB ONE (18:17)
[2021-06-11] MEDS ORDERED: Morphine 4 MG/ML VIAL ONE (21:21)
[2021-06-11] MEDS ORDERED: predniSONE 20 MG TAB ONE (21:21)
== END 2021-06-11 21:37 | disposition home or self-care (01) ==
LOC: BURERS 17:45
DX: L73.2 Hidradenitis suppurativa (principal); I10 Essential (primary) hypertension; F17.210 Nicotine dependence, cigarettes, uncomplicated
CPT/HCPCS: 96372; 99283; J2270; J7512; Q0162

== ENCOUNTER 2021-06-20 16:39 | Emergency (ER) | payer OTHER ==
[2021-06-20] MEDS ORDERED: predniSONE 20 MG TAB ONE ×2 (17:19→17:20)
[2021-06-20] MEDS ORDERED: Ketorolac Tromethamine 60 MG/2 ML VIAL ONE (17:19)
== END 2021-06-20 17:28 | disposition home or self-care (01) ==
LOC: BURERS 16:39
DX: L73.2 Hidradenitis suppurativa (principal); G89.4 Chronic pain syndrome; I10 Essential (primary) hypertension; F17.210 Nicotine dependence, cigarettes, uncomplicated
CPT/HCPCS: 96372; 99283; J1885; J7512

== ENCOUNTER 2021-07-04 09:17 | Emergency (ER) | payer OTHER ==
[2021-07-04] MEDS ORDERED: Morphine 4 MG/ML VIAL ONE (09:28)
[2021-07-04] MEDS ORDERED: predniSONE 20 MG TAB ONE ×2 (09:28→09:34)
== END 2021-07-04 10:45 | disposition home or self-care (01) ==
LOC: BURERS 09:17
DX: L73.2 Hidradenitis suppurativa (principal); I10 Essential (primary) hypertension; F17.210 Nicotine dependence, cigarettes, uncomplicated; Z79.899 Other long term (current) drug therapy
CPT/HCPCS: 96372; 99283; J2270; J7512

== ENCOUNTER 2021-07-16 16:05 | Inpatient (IN) | payer OTHER ==
[2021-07-16] MEDS ORDERED: Morphine 4 MG/ML VIAL ONE (16:22)
[2021-07-16] MEDS ORDERED: Ketorolac Tromethamine 30 MG/ML VIAL ONE (16:23)
[2021-07-16] MEDS ORDERED: Ondansetron PF 4 MG/2 ML Vial ONE (16:23)
[2021-07-16 16:27] LABS: Hemoglobin 14.5 g/dL (14.0-18.0); Mean Corpuscular HGB CONC 32.9 g/dL (32.0-36.0); Mean Corpuscular Hemoglobin 26.3 pg (27.0-31.0); Mean Corpuscular Volume 79.9 fL (78.0-98.0); Mean Platelet Volume 5.6 fL (7.4-10.4); Platelet Count 351 thou/uL (130-400); RBC Distribution Width 16.6 % (11.5-14.5); Red Blood Cell (RBC) Count 5.51 mill/uL (4.70-6.10); White Blood Cell (WBC) Count 29.4 thou/uL (4.8-10.8)
[2021-07-16 16:41] LABS: ALT (SGPT) 10 U/L (8-55); AST (SGOT) 10 U/L (5-34); Albumin 3.7 g/dL (3.5-5.0); Alkaline Phosphatase 131 U/L (40-110); Anion Gap 18 mmol/L (10-20); BUN (Urea Nitrogen) 6 mg/dL (8.9-20.6); Bilirubin, Total 0.5 mg/dL (0.2-1.2); Calc. Creatinine Clearance 0 mL/min (70-130); Calcium 9.3 mg/dL (7.8-10.44); Carbon Dioxide 20 mmol/L (22-29); Chloride 105 mmol/L (98-107); Globulin 5.3 g/dL (2.4-3.5); Glucose 86 mg/dL (70-105); Potassium 4.1 mmol/L (3.5-5.1); Sodium 139 mmol/L (136-145)
[2021-07-16 16:47] LABS: Band 5 % (5-11); Eosinophils 2 % (0-10); Lymphocytes 11 % (21-51); MDiff Complete? YES; Monocytes 10 % (0-10); Neutrophil 72 % (42-75)
[2021-07-16] MEDS ORDERED: Clindamycin/D5W 900 mg/50 ml Premix Bag ONE (16:54)
[2021-07-16] MEDS ORDERED: Morphine 2 MG/ML VIAL SLOW IVP PRN (18:37)
[2021-07-16] MEDS ORDERED: Ondansetron ODT 4 MG TAB SL PRN (18:45)
[2021-07-16] MEDS ORDERED: Acetaminophen 325 MG TAB PO PRN (18:45)
[2021-07-16] MEDS ORDERED: Ondansetron PF 4 MG/2 ML Vial IVP PRN (18:45)
[2021-07-16] MEDS: Dextrose 5 %-0.45 % NaCl 1,000 ML IV SCH (19:37)
[2021-07-16] MEDS ORDERED: Clindamycin 150 MG CAP PO SCH (21:00)
[2021-07-16] MEDS: ISOTRETINOIN PO SCH (21:43)
[2021-07-17] MEDS: Dextrose 5 %-0.45 % NaCl 1,000 ML IV SCH (02:47)
[2021-07-17] MEDS ORDERED: Ondansetron HCl/PF 4 MG in Sodium Chloride 0.9% 50 ML IVPB PRN (07:01)
[2021-07-17] MEDS ORDERED: Morphine 2 MG/ML VIAL SLOW IVP PRN (07:01)
[2021-07-17] MEDS ORDERED: Piperacillin/Tazobactam 3.375 GM in Sodium Chloride 0.9% 100 ML IVPB SCH (07:15)
[2021-07-17] MEDS: Aripiprazole 10 MG TAB PO SCH (07:55)
[2021-07-17] MEDS: Acetaminophen 325 MG TAB PO PRN (07:56)
[2021-07-17] MEDS ORDERED: Vancomycin HCl 1 GM in Sodium Chloride 0.9% 250 ML 250 ML IVPB SCH (08:00)
[2021-07-17] MEDS: Morphine 4 MG/ML VIAL SLOW IVP PRN ×3 (08:14→18:33)
[2021-07-17] MEDS ORDERED: Vancomycin HCl 1.5 GM in Sodium Chloride 0.9% 250 ML 300 ML IVPB SCH (09:00)
[2021-07-17] MEDS ORDERED: predniSONE 20 MG TAB PO SCH (09:00)
[2021-07-17] MEDS: ISOTRETINOIN PO SCH (09:06)
[2021-07-17 09:46] LABS: SARS-CoV-2 NAA Rapid Test Not Detected (NotDetected)
[2021-07-17] MEDS: Enoxaparin Sodium 40 MG/0.4 ML SYRINGE SC SCH (20:27)
[2021-07-18] MEDS: Morphine 4 MG/ML VIAL SLOW IVP PRN ×3 (01:12→11:32)
[2021-07-18 05:45] LABS: #Basophils 0.1 thou/uL (0.0-0.2); #Eosinphils 0.2 thou/uL (0.0-0.7); #Lymphocytes 3.2 thou/uL (1.20-3.40); #Monocytes 1.2 thou/uL (0.11-0.59); #Neutrophils 21.1 thou/uL (1.40-6.50); %Basophils 0.3 % (0.0-1.0); %Eosinophils 0.7 % (0.0-10.0); %Lymphocytes 12.5 % (21.0-51.0); %Monocytes 4.6 % (0.0-10.0); %Neutrophils 81.9 % (42.0-75.0); Hemoglobin 13.3 g/dL (14.0-18.0); Mean Corpuscular HGB CONC 33.7 g/dL (32.0-36.0); Mean Corpuscular Hemoglobin 26.6 pg (27.0-31.0); Mean Corpuscular Volume 78.7 fL (78.0-98.0); Mean Platelet Volume 5.7 fL (7.4-10.4); Platelet Count 305 thou/uL (130-400); RBC Distribution Width 16.1 % (11.5-14.5); Red Blood Cell (RBC) Count 5.01 mill/uL (4.70-6.10); White Blood Cell (WBC) Count 25.8 thou/uL (4.8-10.8)
[2021-07-18 05:50] LABS: ALT (SGPT) 9 U/L (8-55); AST (SGOT) 12 U/L (5-34); Albumin 3.2 g/dL (3.5-5.0); Alkaline Phosphatase 117 U/L (40-110); Anion Gap 17 mmol/L (10-20); BUN (Urea Nitrogen) Less than 4 mg/dL (8.9-20.6); Bilirubin, Total 0.4 mg/dL (0.2-1.2); Calc. Creatinine Clearance 120 mL/min (70-130); Calcium 9.1 mg/dL (7.8-10.44); Carbon Dioxide 22 mmol/L (22-29); Chloride 104 mmol/L (98-107); Globulin 4.6 g/dL (2.4-3.5); Glucose 78 mg/dL (70-105); Potassium 3.9 mmol/L (3.5-5.1); Protein, Total 7.8 g/dL (6.0-8.3); Sodium 139 mmol/L (136-145)
[2021-07-18] MEDS ORDERED: Vancomycin HCl 750 MG in Sodium Chloride 0.9% 250 ML 250 ML IVPB SCH (08:00)
[2021-07-18] MEDS: Aripiprazole 10 MG TAB PO SCH (08:24)
[2021-07-18 10:51] VITALS: BMI 19.0
[2021-07-18] MEDS: Acetaminophen 325 MG TAB PO PRN (13:19)
[2021-07-18] MEDS: Morphine 2 MG/ML VIAL SLOW IVP PRN ×2 (17:48→21:49)
[2021-07-18] MEDS: Enoxaparin Sodium 40 MG/0.4 ML SYRINGE SC SCH (20:23)
[2021-07-19] MEDS: Morphine 2 MG/ML VIAL SLOW IVP PRN ×2 (01:53→06:59)
[2021-07-19 06:22] VITALS: BP 114/76; TEMP 98.8
[2021-07-19 07:31] LABS: Vancomycin, Trough 2.4 ug/mL
[2021-07-19] MEDS ORDERED: Vancomycin HCl 750 MG in Sodium Chloride 0.9% 250 ML 250 ML IVPB SCH (08:00)
[2021-07-19] MEDS: Acetaminophen 325 MG TAB PO PRN (08:33)
[2021-07-19] MEDS: Aripiprazole 10 MG TAB PO SCH (08:41)
== END 2021-07-19 10:10 | disposition home or self-care (01) | DRG 603 ==
LOC: BURERS 16:05 → BURMED 17:59
PROVIDERS: ADMIT Family Medicine; ATTEND Family Medicine
DX: L02.219 Cutaneous abscess of trunk, unspecified (principal); L02.818 Cutaneous abscess of other sites; L73.2 Hidradenitis suppurativa; I10 Essential (primary) hypertension; F31.9 Bipolar disorder, unspecified; F20.9 Schizophrenia, unspecified; F90.9 Attention-deficit hyperactivity disorder, unspecified type; F17.210 Nicotine dependence, cigarettes, uncomplicated; Z88.8 Allergy status to other drugs, medicaments and biological substances; Z20.822 Contact with and (suspected) exposure to COVID-19
CPT/HCPCS: 36415; 71045; 80053; 80202; 83605; 85025; 87040; 96365; 96375; J1885; J2270; J2405; J2543; J3370; J3490; J7042; J7050; U0002

== ENCOUNTER 2021-07-20 19:57 | Emergency (ER) | payer OTHER ==
[2021-07-20] MEDS ORDERED: predniSONE 20 MG TAB ONE (20:04)
[2021-07-20] MEDS ORDERED: Morphine 4 MG/ML VIAL ONE (20:04)
== END 2021-07-20 20:19 | disposition home or self-care (01) ==
LOC: BURERS 19:57
DX: L73.2 Hidradenitis suppurativa (principal); G89.29 Other chronic pain; I10 Essential (primary) hypertension; F17.210 Nicotine dependence, cigarettes, uncomplicated
CPT/HCPCS: 96372; 99283; J2270; J7512

== ENCOUNTER 2021-08-02 20:52 | Emergency (ER) | payer OTHER ==
[2021-08-02] MEDS ORDERED: Morphine 4 MG/ML VIAL ONE (21:34)
[2021-08-02] MEDS ORDERED: predniSONE 20 MG TAB ONE (21:36)
== END 2021-08-02 21:55 | disposition home or self-care (01) ==
LOC: BURERS 20:52
DX: L73.2 Hidradenitis suppurativa (principal); G89.29 Other chronic pain; I10 Essential (primary) hypertension; F17.210 Nicotine dependence, cigarettes, uncomplicated; Z79.899 Other long term (current) drug therapy
CPT/HCPCS: 96372; 99283; J2270; J7512

== ENCOUNTER 2021-09-29 18:01 | Emergency (ER) | payer OTHER ==
[2021-09-29] MEDS ORDERED: predniSONE 20 MG TAB ONE (18:20)
[2021-09-29] MEDS ORDERED: Morphine 4 MG/ML VIAL ONE (18:20)
[2021-09-29] MEDS ORDERED: Ondansetron PF 4 MG/2 ML Vial ONE (18:28)
[2021-09-29] MEDS ORDERED: Ondansetron ODT 4 MG TAB ONE (18:29)
== END 2021-09-29 18:30 | disposition home or self-care (01) ==
LOC: BURERS 18:01
DX: L73.2 Hidradenitis suppurativa (principal); I10 Essential (primary) hypertension; F17.210 Nicotine dependence, cigarettes, uncomplicated; Z79.899 Other long term (current) drug therapy
CPT/HCPCS: 96372; 99283; J2270; J2405; J7512; Q0162

== ENCOUNTER 2021-10-08 19:15 | Emergency (ER) | payer OTHER ==
[2021-10-08] MEDS ORDERED: methylPREDNISolone Acetate 40 mg/ml Vial ONE (20:39)
[2021-10-08] MEDS ORDERED: Morphine 4 MG/ML VIAL ONE (20:39)
== END 2021-10-08 21:10 | disposition home or self-care (01) ==
LOC: BURERS 19:15
DX: G89.4 Chronic pain syndrome (principal); L73.2 Hidradenitis suppurativa; R00.0 Tachycardia, unspecified; Z79.899 Other long term (current) drug therapy
CPT/HCPCS: 96372; 99283; J2270; J2920

== ENCOUNTER 2021-10-28 10:50 | Emergency (ER) | payer OTHER ==
[2021-10-28] MEDS ORDERED: Morphine 4 MG/ML VIAL ONE (12:01)
== END 2021-10-28 12:10 | disposition home or self-care (01) ==
LOC: BURERS 10:50
DX: G89.4 Chronic pain syndrome (principal); L73.2 Hidradenitis suppurativa
CPT/HCPCS: 96372; 99283; J2270

== ENCOUNTER 2021-11-29 14:11 | Emergency (ER) | payer OTHER ==
[2021-11-29] MEDS ORDERED: Morphine 4 MG/ML VIAL ONE (14:51)
== END 2021-11-29 15:19 | disposition home or self-care (01) ==
LOC: BURERS 14:11
DX: L73.2 Hidradenitis suppurativa (principal)
CPT/HCPCS: 96372; 99282; J2270

== ENCOUNTER 2022-01-16 05:47 | Emergency (ER) | payer OTHER ==
[2022-01-16] MEDS ORDERED: predniSONE 20 MG TAB ONE (06:36)
[2022-01-16] MEDS ORDERED: Morphine 4 MG/ML VIAL ONE (06:36)
== END 2022-01-16 06:45 | disposition home or self-care (01) ==
LOC: BURERS 05:47
DX: L73.2 Hidradenitis suppurativa (principal)
CPT/HCPCS: 96372; 99283; J2270; J7512

== ENCOUNTER 2022-02-06 13:29 | Emergency (ER) | payer OTHER ==
[2022-02-06] MEDS ORDERED: HYDROcodone/Acetaminophen 10/325 mg Tablet ONE (13:45)
[2022-02-06] MEDS ORDERED: Doxycycline 100 MG CAP ONE (13:45)
== END 2022-02-06 14:30 | disposition home or self-care (01) ==
LOC: BURERS 13:29
DX: L73.9 Follicular disorder, unspecified (principal); L02.01 Cutaneous abscess of face
CPT/HCPCS: 99283

== ENCOUNTER 2022-02-23 12:20 | Emergency (ER) | payer OTHER ==
[2022-02-23] MEDS ORDERED: Dexamethasone 10 MG/ML VIAL ONE (12:44)
[2022-02-23] MEDS ORDERED: Ondansetron ODT 4 MG TAB ONE (12:44)
[2022-02-23] MEDS ORDERED: Morphine 4 MG/ML VIAL ONE (12:44)
== END 2022-02-23 13:29 | disposition home or self-care (01) ==
LOC: BURERS 12:20
DX: L73.2 Hidradenitis suppurativa (principal); G89.29 Other chronic pain
CPT/HCPCS: 96372; 99283; J1100; J2270; Q0162

== ENCOUNTER 2022-03-08 08:52 | Emergency (ER) | payer OTHER ==
[2022-03-08] MEDS ORDERED: Dexamethasone 10 MG/ML VIAL ONE (09:13)
== END 2022-03-08 09:23 | disposition home or self-care (01) ==
LOC: BURERS 08:52
DX: L73.2 Hidradenitis suppurativa (principal)
CPT/HCPCS: 96372; 99283; J1100

== ENCOUNTER 2022-03-21 18:37 | Emergency (ER) | payer OTHER ==
[2022-03-21] MEDS ORDERED: predniSONE 20 MG TAB ONE (18:53)
[2022-03-21] MEDS ORDERED: Morphine 4 MG/ML VIAL ONE (18:53)
[2022-03-21] MEDS ORDERED: Ondansetron ODT 4 MG TAB ONE (18:53)
== END 2022-03-21 19:00 | disposition home or self-care (01) ==
LOC: BURERS 18:37
DX: L73.2 Hidradenitis suppurativa (principal); G89.29 Other chronic pain
CPT/HCPCS: 96372; 99283; J2270; J7512; Q0162

== ENCOUNTER 2022-04-07 16:47 | Emergency (ER) | payer OTHER ==
[2022-04-07] MEDS ORDERED: Dexamethasone 10 MG/ML VIAL ONE (17:51)
== END 2022-04-07 18:20 | disposition home or self-care (01) ==
LOC: BURERS 16:47
DX: L73.2 Hidradenitis suppurativa (principal)
CPT/HCPCS: 96372; 99283; J1100

== ENCOUNTER 2022-04-28 17:34 | Emergency (ER) | payer OTHER ==
[2022-04-28] MEDS ORDERED: Dexamethasone 10 MG/ML VIAL ONE (17:49)
[2022-04-28] MEDS ORDERED: Ketorolac Tromethamine 30 MG/ML VIAL ONE (18:13)
== END 2022-04-28 18:20 | disposition home or self-care (01) ==
LOC: BURERS 17:34
DX: L73.2 Hidradenitis suppurativa (principal)
CPT/HCPCS: 96372; 99283; J1100; J1885

== ENCOUNTER 2022-05-19 09:47 | Emergency (ER) | payer OTHER ==
[2022-05-19] MEDS ORDERED: Morphine 10 MG/ML VIAL ONE (10:24)
[2022-05-19] MEDS ORDERED: Dexamethasone 10 MG/ML VIAL ONE (10:24)
== END 2022-05-19 10:39 | disposition home or self-care (01) ==
LOC: BURERS 09:47
DX: L73.2 Hidradenitis suppurativa (principal); J06.9 Acute upper respiratory infection, unspecified
CPT/HCPCS: 96372; 99283; J1100; J2270

== ENCOUNTER 2022-06-01 11:22 | Emergency (ER) | payer OTHER ==
[2022-06-01] MEDS ORDERED: Morphine 10 MG/ML VIAL ONE (12:02)
[2022-06-01] MEDS ORDERED: predniSONE 20 MG TAB ONE (12:03)
== END 2022-06-01 12:13 | disposition home or self-care (01) ==
LOC: BURERS 11:22
DX: L73.2 Hidradenitis suppurativa (principal)
CPT/HCPCS: 96372; 99283; J2270; J7512

== ENCOUNTER 2022-06-19 15:26 | Emergency (ER) | payer OTHER | END 2022-06-19 17:01 | disposition left against medical advice (07) | LOC: BURERS 15:26 | DX: Z53.21 Procedure and treatment not carried out due to patient leaving prior to being seen by health care provider (principal) ==

== ENCOUNTER 2022-06-21 12:02 | Emergency (ER) | payer OTHER ==
[2022-06-21] MEDS ORDERED: Ketorolac Tromethamine 30 MG/ML VIAL ONE (12:25)
[2022-06-21] MEDS ORDERED: Morphine 2 MG/ML VIAL ONE ×2 (12:25→17:39)
[2022-06-21 12:49] LABS: #Basophils 0.1 thou/uL (0.0-0.2); #Eosinphils 0.2 thou/uL (0.0-0.7); #Monocytes 1.2 thou/uL (0.11-0.59); #Neutrophils 14.1 thou/uL (1.40-6.50); %Basophils 0.3 % (0.0-1.0); %Lymphocytes 20.6 % (21.0-51.0); %Neutrophils 72.1 % (42.0-75.0); Hemoglobin 14.5 g/dL (14.0-18.0); Mean Corpuscular HGB CONC 31.5 g/dL (32.0-36.0); Mean Corpuscular Hemoglobin 27.2 pg (27.0-31.0); Mean Corpuscular Volume 86.2 fl (78.0-98.0); Platelet Count 252 10x3/uL (130-400); RBC Distribution Width 15.3 % (11.5-14.5); Red Blood Cell (RBC) Count 5.32 mill/uL (4.70-6.10); White Blood Cell (WBC) Count 19.5 10x3/uL (4.8-10.8)
[2022-06-21 12:58] LABS: ALT (SGPT) 23 U/L (8-55); AST (SGOT) 27 U/L (5-34); Albumin 3.7 g/dL (3.5-5.0); Alkaline Phosphatase 101 U/L (40-110); Anion Gap 15 mmol/L (10-20); BUN (Urea Nitrogen) Less than 4 mg/dL (8.9-20.6); Bilirubin, Total 0.8 mg/dL (0.2-1.2); Calc. Creatinine Clearance 0 mL/min (70-130); Calcium 9.4 mg/dL (7.8-10.44); Carbon Dioxide 24 mmol/L (22-29); Chloride 103 mmol/L (98-107); Estimated GFR 119; Globulin 4.9 g/dL (2.4-3.5); Glucose 79 mg/dL (70-105); Magnesium 1.9 mg/dL (1.6-2.6); Potassium 4.1 mmol/L (3.5-5.1); Protein, Total 8.6 g/dL (6.0-8.3); Sodium 138 mmol/L (136-145)
[2022-06-21] MEDS ORDERED: Doxycycline 100 MG CAP ONE (14:24)
== END 2022-06-21 19:19 | disposition short-term general hospital (02) ==
LOC: BURERS 12:02
DX: L73.2 Hidradenitis suppurativa (principal)
CPT/HCPCS: 36415; 80053; 83605; 83735; 85025; 86140; 87040; 96374; 96375; 96376; J1885; J2272

== ENCOUNTER 2022-07-30 06:41 | Emergency (ER) | payer OTHER ==
[2022-07-30] MEDS ORDERED: Morphine 10 MG/ML VIAL ONE (07:10)
[2022-07-30] MEDS ORDERED: Ondansetron ODT 4 MG TAB ONE (07:11)
[2022-07-30] MEDS ORDERED: methylPREDNISolone Sod Succ/PF 125 MG/2 ML VIAL ONE (07:11)
== END 2022-07-30 07:40 | disposition home or self-care (01) ==
LOC: BURERS 06:41
DX: L73.2 Hidradenitis suppurativa (principal); L02.91 Cutaneous abscess, unspecified
CPT/HCPCS: 96372; 99283; J2270; J2930; Q0162

== ENCOUNTER 2022-09-20 09:32 | Emergency (ER) | payer OTHER ==
[2022-09-20] MEDS ORDERED: Ondansetron PF 4 MG/2 ML Vial ONE (09:53)
[2022-09-20] MEDS ORDERED: Morphine 4 MG/ML VIAL ONE (09:53)
[2022-09-20] MEDS ORDERED: HYDROcodone/Acetaminophen 10/325 mg Tablet ONE (10:33)
[2022-09-20] MEDS ORDERED: predniSONE 20 MG TAB ONE (10:34)
== END 2022-09-20 10:30 | disposition home or self-care (01) ==
LOC: BURERS 09:32
DX: L02.11 Cutaneous abscess of neck (principal)
CPT/HCPCS: 10060; 96374; 96375; J2270; J2405; J7512

== ENCOUNTER 2022-10-12 10:20 | Emergency (ER) | payer OTHER ==
[2022-10-12] MEDS ORDERED: Morphine 4 MG/ML VIAL ONE (10:49)
[2022-10-12] MEDS ORDERED: Ketorolac Tromethamine 60 MG/2 ML VIAL ONE (10:49)
== END 2022-10-12 10:57 | disposition home or self-care (01) ==
LOC: BURERS 10:20
DX: J20.9 Acute bronchitis, unspecified (principal); G89.29 Other chronic pain
CPT/HCPCS: 96372; 99283; J1885; J2270

== ENCOUNTER 2023-02-10 17:08 | Emergency (ER) | payer OTHER ==
[2023-02-10] MEDS ORDERED: Dexamethasone 10 MG/ML VIAL ONE ×2 (18:09→18:11)
[2023-02-10] MEDS ORDERED: Morphine 2 MG/ML VIAL ONE (18:10)
[2023-02-10] MEDS ORDERED: Morphine 4 MG/ML VIAL ONE (18:10)
== END 2023-02-10 21:02 | disposition home or self-care (01) ==
LOC: BURERS 17:08
DX: L73.2 Hidradenitis suppurativa (principal); F17.200 Nicotine dependence, unspecified, uncomplicated
CPT/HCPCS: 96372; 99283; J1100; J2270; J2272

== ENCOUNTER 2023-03-03 11:36 | Emergency (ER) | payer OTHER ==
[2023-03-03] MEDS ORDERED: Morphine 2 MG/ML VIAL ONE (11:49)
[2023-03-03] MEDS ORDERED: Morphine 4 MG/ML VIAL ONE (11:49)
[2023-03-03] MEDS ORDERED: predniSONE 20 MG TAB ONE (11:50)
== END 2023-03-03 12:11 | disposition home or self-care (01) ==
LOC: BURERS 11:36
DX: L73.2 Hidradenitis suppurativa (principal); F17.200 Nicotine dependence, unspecified, uncomplicated
CPT/HCPCS: 96372; 99282; J2270; J2272; J7512

== ENCOUNTER 2023-03-20 10:06 | Emergency (ER) | payer OTHER ==
[2023-03-20] MEDS ORDERED: Morphine 2 MG/ML VIAL ONE (11:00)
[2023-03-20] MEDS ORDERED: Morphine 4 MG/ML VIAL ONE (11:00)
[2023-03-20] MEDS ORDERED: predniSONE 20 MG TAB ONE (11:01)
== END 2023-03-20 11:29 | disposition home or self-care (01) ==
LOC: BURERS 10:06
DX: J01.90 Acute sinusitis, unspecified (principal); B96.89 Other specified bacterial agents as the cause of diseases classified elsewhere; G89.29 Other chronic pain; L73.2 Hidradenitis suppurativa; F17.200 Nicotine dependence, unspecified, uncomplicated
CPT/HCPCS: 96374; J2270; J2272; J7512

== ENCOUNTER 2023-04-06 07:12 | Emergency (ER) | payer OTHER ==
[2023-04-06] MEDS ORDERED: HYDROcodone/Acetaminophen 5/325 mg Tablet ONE (07:30)
== END 2023-04-06 07:40 | disposition home or self-care (01) ==
LOC: BURERS 07:12
DX: R07.9 Chest pain, unspecified (principal); F17.200 Nicotine dependence, unspecified, uncomplicated
CPT/HCPCS: 93005

== ENCOUNTER 2023-06-17 11:01 | Outpatient (CLI) | payer OTHER | END 2023-06-17 11:02 | disposition home or self-care (01) | LOC: BURRAD 11:01 | PROVIDERS: ATTEND Family Medicine | DX: M79.641 Pain in right hand (principal) ==

== ENCOUNTER 2023-06-23 16:38 | Emergency (ER) | payer OTHER ==
[2023-06-23] MEDS ORDERED: HYDROcodone/Acetaminophen 10/325 mg Tablet ONE (16:53)
== END 2023-06-23 16:41 | disposition home or self-care (01) ==
LOC: BURERS 16:38
DX: S62.316A Displaced fracture of base of fifth metacarpal bone, right hand, initial encounter for closed fracture (principal); X58.XXXA Exposure to other specified factors, initial encounter

== ENCOUNTER 2023-06-29 14:36 | Emergency (ER) | payer OTHER ==
[2023-06-29] MEDS ORDERED: HYDROcodone/Acetaminophen 5/325 mg Tablet ONE (15:03)
== END 2023-06-29 15:00 | disposition home or self-care (01) ==
LOC: BURERS 14:36
DX: L73.2 Hidradenitis suppurativa (principal)
CPT/HCPCS: 99282

== ENCOUNTER 2023-08-06 19:09 | Emergency (ER) | payer OTHER ==
[2023-08-06] MEDS ORDERED: Morphine 4 MG/ML VIAL ONE (19:40)
[2023-08-06] MEDS ORDERED: Morphine 2 MG/ML VIAL ONE (19:41)
[2023-08-06] MEDS ORDERED: predniSONE 20 MG TAB ONE (19:41)
== END 2023-08-06 20:30 | disposition home or self-care (01) ==
LOC: BURERS 19:09
DX: L73.2 Hidradenitis suppurativa (principal)
CPT/HCPCS: 96372; 99283; J2270; J2272; J7512

== ENCOUNTER 2023-08-19 09:46 | Emergency (ER) | payer OTHER ==
[2023-08-19] MEDS ORDERED: Doxycycline 100 MG CAP ONE (10:19)
[2023-08-19] MEDS ORDERED: HYDROcodone/Acetaminophen 10/325 mg Tablet ONE (10:19)
== END 2023-08-19 10:35 | disposition home or self-care (01) ==
LOC: BURERS 09:46
DX: L73.2 Hidradenitis suppurativa (principal)
CPT/HCPCS: 99283

== ENCOUNTER 2023-08-26 08:53 | Emergency (ER) | payer OTHER ==
[2023-08-26] MEDS ORDERED: Morphine 2 MG/ML VIAL ONE (09:20)
[2023-08-26] MEDS ORDERED: Dexamethasone 10 MG/ML VIAL ONE (09:20)
[2023-08-26] MEDS ORDERED: Morphine 4 MG/ML VIAL ONE (09:20)
[2023-08-26] MEDS ORDERED: Ondansetron ODT 4 MG TAB ONE (09:29)
== END 2023-08-26 09:51 | disposition home or self-care (01) ==
LOC: BURERS 08:53
DX: L73.2 Hidradenitis suppurativa (principal)
CPT/HCPCS: 96372; 99283; J1100; J2270; J2272; Q0162

== ENCOUNTER 2023-09-16 10:26 | Emergency (ER) | payer OTHER ==
[2023-09-16] MEDS ORDERED: Ketorolac Tromethamine 60 MG/2 ML VIAL ONE (10:44)
[2023-09-16] MEDS ORDERED: Ondansetron ODT 4 MG TAB ONE (10:44)
[2023-09-16] MEDS ORDERED: HYDROcodone/Acetaminophen 5/325 mg Tablet ONE (10:44)
== END 2023-09-16 11:44 | disposition home or self-care (01) ==
LOC: BURERS 10:26
DX: J20.9 Acute bronchitis, unspecified (principal); L73.2 Hidradenitis suppurativa
CPT/HCPCS: 71045; 96372; J1885; Q0162

== ENCOUNTER 2023-10-12 18:03 | Emergency (ER) | payer OTHER ==
[2023-10-12] MEDS ORDERED: Dexamethasone 10 MG/ML VIAL ONE (18:40)
[2023-10-12] MEDS ORDERED: Morphine 4 MG/ML VIAL ONE (18:40)
[2023-10-12] MEDS ORDERED: Morphine 2 MG/ML VIAL ONE (18:41)
== END 2023-10-12 19:38 | disposition home or self-care (01) ==
LOC: BURERS 18:03
DX: L73.2 Hidradenitis suppurativa (principal)
CPT/HCPCS: 96372; 99283; J1100; J2272

== ENCOUNTER 2023-10-25 07:52 | Emergency (ER) | payer OTHER ==
[2023-10-25] MEDS ORDERED: predniSONE 20 MG TAB ONE (08:18)
[2023-10-25] MEDS ORDERED: Ketorolac Tromethamine 30 MG (1 mL) VIAL ONE (08:18)
== END 2023-10-25 08:35 | disposition home or self-care (01) ==
LOC: BURERS 07:52
DX: L73.2 Hidradenitis suppurativa (principal)
CPT/HCPCS: 96372; 99283; J1885; J7512

== ENCOUNTER 2023-11-17 16:24 | Emergency (ER) | payer OTHER ==
[2023-11-17] MEDS ORDERED: Ketorolac Tromethamine 30 MG (1 mL) VIAL ONE (16:47)
== END 2023-11-17 16:56 | disposition home or self-care (01) ==
LOC: BURERS 16:24
DX: L73.2 Hidradenitis suppurativa (principal); Z55.6 Problems related to health literacy
CPT/HCPCS: 96372; 99283; J1885

== ENCOUNTER 2023-12-13 07:20 | Emergency (ER) | payer OTHER ==
[2023-12-13] MEDS ORDERED: Dexamethasone 10 MG/ML VIAL ONE (08:23)
[2023-12-13] MEDS ORDERED: Ketorolac Tromethamine 60 MG/2 ML VIAL ONE (08:23)
== END 2023-12-13 08:31 | disposition home or self-care (01) ==
LOC: BURERS 07:20
DX: L73.2 Hidradenitis suppurativa (principal)
CPT/HCPCS: 96372; 99283; J1100; J1885

== ENCOUNTER 2023-12-22 16:23 | Emergency (ER) | payer OTHER ==
[~2023-12-22 16:23] MED LIST changes: +HYDROcodone/Acetaminophen 10/325 mg Tablet ONE; -Iopamidol 370 76% 100 ML VIAL ONE; +predniSONE 20 MG TAB ONE
== END 2023-12-22 16:50 | disposition home or self-care (01) ==
LOC: BURERS 16:23
DX: L73.2 Hidradenitis suppurativa (principal); M79.622 Pain in left upper arm; G89.29 Other chronic pain
CPT/HCPCS: 99283; J7512

== ENCOUNTER 2024-01-10 13:21 | Emergency (ER) | payer OTHER ==
[2024-01-10] MEDS ORDERED: Dexamethasone 10 MG/ML VIAL ONE (13:58)
[2024-01-10] MEDS ORDERED: Morphine 10 MG/ML VIAL ONE (13:58)
== END 2024-01-10 15:24 | disposition home or self-care (01) ==
LOC: BURERS 13:21
DX: L73.2 Hidradenitis suppurativa (principal)
CPT/HCPCS: 96372; 99283; J1100; J2270

== ENCOUNTER 2024-03-06 09:19 | Emergency (ER) | payer OTHER ==
[2024-03-06] MEDS ORDERED: Ibuprofen 200 MG TAB ONE (09:34)
[2024-03-06] MEDS ORDERED: Acetaminophen 500 MG TAB ONE (09:34)
[2024-03-06] MEDS ORDERED: predniSONE 20 MG TAB ONE (09:35)
== END 2024-03-06 09:42 | disposition home or self-care (01) ==
LOC: BURERS 09:19
DX: L73.2 Hidradenitis suppurativa (principal); G89.29 Other chronic pain; Z76.0 Encounter for issue of repeat prescription; Z79.899 Other long term (current) drug therapy
CPT/HCPCS: 99283; J7512

== ENCOUNTER 2024-03-26 12:04 | Emergency (ER) | payer MEDICAID, OTHER ==
[2024-03-26] MEDS ORDERED: Ketorolac Tromethamine 60 MG/2 ML VIAL ONE (12:20)
[2024-03-26] MEDS ORDERED: methylPREDNISolone Sod Succ/PF 125 MG/2 ML VIAL ONE (12:20)
[2024-03-26] MEDS ORDERED: Sucralfate 1 GM TAB ONE (12:28)
== END 2024-03-26 12:30 | disposition home or self-care (01) ==
LOC: BURERS 12:04
DX: L73.2 Hidradenitis suppurativa (principal); Z55.6 Problems related to health literacy
CPT/HCPCS: J1885; J2919

== ENCOUNTER 2024-04-08 09:45 | Emergency (ER) | payer MEDICAID, OTHER ==
[2024-04-08] MEDS ORDERED: fentaNYL 50 mcg/mL 1 mL Vial ONE (10:35)
[2024-04-08] MEDS ORDERED: Ketorolac Tromethamine 30 MG (1 mL) VIAL ONE (10:36)
[2024-04-08] MEDS ORDERED: HYDROcodone/Acetaminophen 10/325 mg Tablet ONE (10:55)
== END 2024-04-08 11:25 | disposition home or self-care (01) ==
LOC: BURERS 09:45
DX: M25.562 Pain in left knee (principal); M25.561 Pain in right knee; M79.672 Pain in left foot; M79.671 Pain in right foot
CPT/HCPCS: 96372; 99283; J1885; J3010

== ENCOUNTER 2024-04-22 11:51 | Emergency (ER) | payer MEDICAID ==
[2024-04-22] MEDS ORDERED: Ondansetron ODT 4 MG TAB ONE (12:05)
[2024-04-22] MEDS ORDERED: Ketorolac Tromethamine 30 MG (1 mL) VIAL ONE (12:05)
== END 2024-04-22 12:13 | disposition home or self-care (01) ==
LOC: BURERS 11:51
DX: M79.10 Myalgia, unspecified site (principal); R11.0 Nausea; Z55.6 Problems related to health literacy
CPT/HCPCS: 96372; 99283; J1885; Q0162

== ENCOUNTER 2024-04-29 19:21 | Emergency (ER) | payer MEDICAID ==
[2024-04-29] MEDS ORDERED: Ketorolac Tromethamine 30 MG (1 mL) VIAL ONE (19:41)
[2024-04-29] MEDS ORDERED: methylPREDNISolone Acetate 40 mg/ml Vial ONE (19:41)
[2024-04-29] MEDS ORDERED: methylPREDNISolone Sod Succ 40 MG VIAL ONE (19:48)
== END 2024-04-29 20:17 | disposition home or self-care (01) ==
LOC: BURERS 19:21
DX: M79.10 Myalgia, unspecified site (principal); Z55.6 Problems related to health literacy
CPT/HCPCS: 96372; 99283; J1010; J1885; J2919

== ENCOUNTER 2024-09-12 06:20 | Emergency (ER) | payer MEDICAID ==
[2024-09-12] MEDS ORDERED: Dexamethasone 10 MG/ML VIAL ONE (07:16)
== END 2024-09-12 07:28 | disposition home or self-care (01) ==
LOC: BURERS 06:20
DX: L73.2 Hidradenitis suppurativa (principal)
CPT/HCPCS: 96372; 99283; J1100; J2270; J2272; Q0162

== ENCOUNTER 2024-10-08 22:18 | Emergency (ER) | payer OTHER ==
[2024-10-08] MEDS ORDERED: Dexamethasone 10 MG/ML VIAL ONE (22:50)
== END 2024-10-08 23:50 | disposition home or self-care (01) ==
LOC: BURERS 22:18
DX: L73.2 Hidradenitis suppurativa (principal)
CPT/HCPCS: 96372; 99283; J1100; J2270; J2272

== ENCOUNTER 2024-10-14 11:37 | Emergency (ER) | payer MEDICAID, OTHER ==
[2024-10-14] MEDS ORDERED: Dexamethasone 10 MG/ML VIAL ONE (11:58)
== END 2024-10-14 12:49 | disposition home or self-care (01) ==
LOC: BBPBJX 11:37 → BURERS 12:49
DX: L73.2 Hidradenitis suppurativa (principal); F17.210 Nicotine dependence, cigarettes, uncomplicated; Z59.71 Insufficient health insurance coverage; Z59.00 Homelessness unspecified; Z55.6 Problems related to health literacy
CPT/HCPCS: 96372; 99282; J1100; J2270

== ENCOUNTER 2024-10-24 10:10 | Emergency (ER) | payer MEDICAID ==
[2024-10-24] MEDS ORDERED: Cephalexin 250 MG CAP ONE (11:03)
[2024-10-24] MEDS ORDERED: predniSONE 20 MG TAB ONE (11:04)
[2024-10-24] MEDS ORDERED: Sulfameth/Trimethoprim DS 800-160mg TAB ONE (11:04)
== END 2024-10-24 11:14 | disposition home or self-care (01) ==
LOC: BURERS 10:10
DX: L73.2 Hidradenitis suppurativa (principal); F17.210 Nicotine dependence, cigarettes, uncomplicated
CPT/HCPCS: 96372; 99283; J2270; J7512

== ENCOUNTER 2024-11-06 15:11 | Emergency (ER) | payer MEDICAID, OTHER ==
[2024-11-06 16:29] LABS: Hematocrit 46.6 % (42.0-52.0); Hemoglobin 15.9 g/dL (14.0-18.0); Mean Corpuscular Hemoglobin 26.8 pg (27.0-31.0); Mean Corpuscular Volume 78.4 fl (78.0-98.0); Platelet Count 358 10x3/uL (130-400); Red Blood Cell (RBC) Count 5.94 mill/uL (4.70-6.10); White Blood Cell (WBC) Count 19.3 10x3/uL (4.8-10.8)
[2024-11-06 16:41] LABS: ALT (SGPT) 15 U/L (Less than 45); AST (SGOT) 15 U/L (11-34); Albumin 3.1 g/dL (3.1-4.5); Alkaline Phosphatase 116 U/L (40-110); Anion Gap 17 mmol/L (10-20); BUN (Urea Nitrogen) 5 mg/dL (8.9-20.6); Bilirubin, Total 0.4 mg/dL (0.3-1.2); Calc. Creatinine Clearance 0 mL/min (70-130); Calcium 9.2 mg/dL (7.8-10.44); Carbon Dioxide 22 mmol/L (22-29); Chloride 105 mmol/L (98-107); Globulin 5.2 g/dL (2.4-3.5); Glucose 79 mg/dL (70-105); Magnesium 2.2 mg/dL (1.6-2.6); Potassium 4.3 mmol/L (3.5-5.1); Sodium 140 mmol/L (136-145)
[2024-11-06 16:57] LABS: MDiff Complete? YES
== END 2024-11-06 21:44 | disposition short-term general hospital (02) ==
LOC: BURERS 15:11
DX: A41.9 Sepsis, unspecified organism (principal); L73.2 Hidradenitis suppurativa; L03.90 Cellulitis, unspecified; R52 Pain, unspecified; F17.210 Nicotine dependence, cigarettes, uncomplicated
CPT/HCPCS: 80053; 83605; 83735; 85025; 87040; 96365; 96367; 96375; J2543; J2919; J3490

== ENCOUNTER 2024-12-19 09:14 | Emergency (ER) | payer OTHER, SELFPAY | END 2024-12-19 09:56 | disposition home or self-care (01) | LOC: BURERS 09:14 | DX: L73.2 Hidradenitis suppurativa (principal); F17.210 Nicotine dependence, cigarettes, uncomplicated | CPT/HCPCS: J2270; Q0162 ==

== ENCOUNTER 2024-12-30 06:34 | Emergency (ER) | payer SELFPAY ==
[2024-12-30] MEDS ORDERED: predniSONE 20 MG TAB ONE (07:07)
== END 2024-12-30 07:26 | disposition home or self-care (01) ==
LOC: BURERS 06:34
DX: L73.2 Hidradenitis suppurativa (principal); F17.210 Nicotine dependence, cigarettes, uncomplicated
CPT/HCPCS: 96372; 99283; J2270; J7512

== ENCOUNTER 2025-01-03 14:36 | Emergency (ER) | payer SELFPAY ==
[2025-01-03] MEDS ORDERED: predniSONE 20 MG TAB ONE (14:48)
== END 2025-01-03 16:00 | disposition home or self-care (01) ==
LOC: BURERS 14:36
DX: L03.314 Cellulitis of groin (principal); F17.210 Nicotine dependence, cigarettes, uncomplicated
CPT/HCPCS: 96372; 99283; J2270; J7512

== ENCOUNTER 2025-01-18 16:12 | Emergency (ER) | payer SELFPAY ==
[2025-01-18] MEDS ORDERED: predniSONE 20 MG TAB ONE (17:09)
== END 2025-01-18 17:53 | disposition home or self-care (01) ==
LOC: BURERS 16:12
DX: R52 Pain, unspecified (principal); L73.2 Hidradenitis suppurativa; F17.210 Nicotine dependence, cigarettes, uncomplicated
CPT/HCPCS: 96372; 99283; J2270; J7512

== ENCOUNTER 2025-02-04 10:06 | Emergency (ER) | payer OTHER, SELFPAY ==
[2025-02-04] MEDS ORDERED: Clindamycin 150 MG CAP ONE (11:02)
== END 2025-02-04 11:29 | disposition home or self-care (01) ==
LOC: BURERS 10:06
DX: L73.2 Hidradenitis suppurativa (principal); L02.412 Cutaneous abscess of left axilla; F17.210 Nicotine dependence, cigarettes, uncomplicated
CPT/HCPCS: 96372; 99283; J2270